=== PATIENT | female | born 1985 | race Caucasian/White ===

== ENCOUNTER → 2019-10-13 11:38 | Outpatient (CLI) | payer MEDICAID, SELFPAY | PROVIDERS: PCP Emergency Medicine; Visit Provider Nurse Practitioner Family | DX: R07.9 Chest pain, unspecified (principal); R06.00 Dyspnea, unspecified; R00.0 Tachycardia, unspecified; R94.31 Abnormal electrocardiogram [ECG] [EKG] | CPT/HCPCS: 93270 ==

== ENCOUNTER 2019-10-19 22:03 | Emergency (ER) | payer MEDICAID, SELFPAY ==
[2019-10-19 22:04] VITALS: BP 173/110; PULSE 136; RESP 28; TEMP 37.2; O2SAT 97; BMI 31.8
--- NOTE | 2019-10-19 22:13 | ECG_ITS ---
APPROVED REPORT Exam: Resting ECG HR:131 bpm ECG Measurements Heart Rate 131 AXES MS 128 P 53 QRSd 62 QRS 78 QT 288 T -10 QTc 425 <Conclusion> Sinus tachycardia T wave abnormality, consider anterior ischemia Abnormal ECG Electronically signed by : Jesus Moss, 10/20/2019 06:13:15
--- NOTE | 2019-10-19 22:13 | XR_ITS ---
PROCEDURE: XR CHEST 2V CLINICAL HISTORY: Chest Pain w/ SOA Centralized chest pain with shortness of breath COMPARISON: CR CXR CHEST(2 VIEWS-NOT PORTABLE) from 05/08/2015 CR CXR CHEST(2 VIEWS-NOT PORTABLE) from 05/10/2015 CR CXR CHEST(2 VIEWS-NOT PORTABLE) from 10/01/2015 FINDINGS: Heart size normal. There is diffuse bilateral alveolar disease No obvious effusions. There is suggestion of vague bilateral nodular opacities superimposed upon the diffuse alveolar disease. Consider CT evaluation. No acute bony abnormalities. IMPRESSION: Diffuse bilateral airspace disease which could be related to diffuse pneumonia or noncardiogenic pulmonary edema. There is also suggestion of multiple nodular opacities measuring up to 16 mm possibly due to denser consolidation versus pulmonary nodules. Consider chest CT further evaluation. Dictated by: Srinivasan Montalvo MD 10/20/2019 05:26 Srinivasan Montalvo MD in [place] 10/20/2019 05:26
[2019-10-19 22:24] LABS: Basophils # 0.1 K/mm3 (0-0.2); Basophils % 0.3 % (0.1-2.0); Eosinophils # 0.2 K/mm3 (0.0-0.4); Eosinophils % 1.4 % (0.1-12.0); Hematocrit 39.4 % (37.0-47.0); Hemoglobin 12.9 g/dL (12.2-16.2); Lymphocytes # 3.7 K/mm3 (0.7-4.5); Lymphocytes % 20.8 % (10-50); Mean Corpuscular HGB Conc 32.8 g/dL (31.8-35.4); Mean Corpuscular Hemoglobin 26.4 pg (27.0-31.2); Mean Corpuscular Volume 80.5 fl (81-99); Monocytes # 0.7 K/mm3 (0.1-1.0); Monocytes % 3.8 % (1.7-9.3); Neutrophils % 73.7 % (37.0-80.0); Platelet Count 239 K/mm3 (142-424); Red Blood Count 4.89 M/mm3 (4.20-5.40); Red Cell Distribution Width 15.8 % (11.5-17.5); White Blood Count 17.6 K/mm3 (4.8-10.8)
[2019-10-19 22:32] LABS: MANUAL DIFFERENTIAL MANUAL DIFFERENTIAL (MANUAL DIFF)
[2019-10-19 22:33] LABS: Blood Urea Nitrogen 11 mg/dl (7-17); Calcium 9.2 mg/dl (8.4-10.2); Carbon Dioxide 25 mmol/L (22.0-30.0); Chloride 106 mmol/L (98-107); Creatinine Clearance Estimated 127 mL/min (50-200); Estimated Glomerular Filt Rate 82 ml/min (>60); GFR (African American) 99 ML/MIN (>60); Glucose 129 mg/dl (74-100); Sodium 141 mmol/L (136-145)
[2019-10-19 22:45] VITALS: BP 140/88; PULSE 121; RESP 16; O2SAT 98
--- NOTE | 2019-10-19 22:48 | PC.NURSE ---
Pt had moderate relief from S.L. Nitro, 1 inch Nitro paste placed on pt's ACW
[2019-10-19 22:51] LABS: Troponin I < 0.01 ng/ml (0.00-0.034)
[2019-10-19 23:07] LABS: Eosinophils % 2 % (0-3); Lymphocytes % 21 % (10-50); Monocytes % 6 % (2-9); Neutrophils % 71 % (42-76); Total Cells Counted 100
[2019-10-19 23:08] LABS: Hypochromasia 1+; Platelet Estimate Normal
[2019-10-19 23:12] LABS: Coronavirus 19 IgG Antibody Negative (Negative); Coronavirus 19 IgM Antibody Negative (Negative)
[2019-10-19 23:38] VITALS: BP 127/79; PULSE 120; RESP 18; TEMP 37.2; O2SAT 97
== END 2019-10-19 23:40 | disposition left against medical advice (07) ==
PROVIDERS: Emergency Provider Emergency Medicine; PCP Emergency Medicine
DX: R07.9 Chest pain, unspecified (principal); R06.02 Shortness of breath
CPT/HCPCS: 71046; 80048; 84484; 85007; 85025; 86328; 93005; 96365; 99283

== ENCOUNTER → 2019-10-20 12:48 | Outpatient (CLI) | payer MEDICAID, SELFPAY ==
--- NOTE | 2019-10-20 12:48 | CA_ITS ---
APPROVED REPORT EXAM: Comprehensive 2D, Doppler, and color-flow Echocardiogram Taper/Finisher: Lore Higginbotham CRT Ht: 5 ft 3 in Wt: 193lbs BSA: 1.90 BP: 129/90 mmHg Indications: Abnormal ECG, Chest Pressure, Shortness of Breath, Palpitations, Hypertension/HDD, smoker, tachycardia 2D Dimensions LVOT 1.67 cm (M/F) 1.5-2.5 M-Mode Dimensions RVDd 2.07 cm (0.9-2.6) LVDd 4.11 cm (3.5-5.7) LVDs 2.39 cm (3.5-5.7) IVSd 1.61 cm (0.6-1.1) PWd 0.61 cm (0.6-1.1) EF (Teich) 73.20% FS 41.80% EDV (Teich) 74.70 mL ESV (Teich) 20.00 mL LV Diastology E/A Ratio 0.86 Mitral Valve MV A Velocity 85.00 (40-130 cm/s) Left Ventricle Left atrium is normal size, left ventricle is normal size, there is no concentric left ventricular hypertrophy, visually estimated ejection fraction 55% with no regional wall motion abnormality, diastolic parameters are within normal range. Right Ventricle Right atrium and right ventricular normal size and contractility. Aortic Valve Aortic valve is grossly normal, there is no aortic stenosis or aortic insufficiency. Mitral Valve Mitral valve is grossly normal, there is trace mitral regurgitation. Tricuspid Valve Tricuspid valve grossly normal, there is trace tricuspid regurgitation. Tricuspid regurgitation jet velocity is inadequate for calculation of the right ventricular systolic pressure. Pulmonic Valve Pulmonic valve is poorly visualized. Great Vessels Aortic root is normal size. Pericardium No significant pericardial effusion noted. Conclusion 1. Normal left ventricular size, preserved left ventricular systolic function, visually estimated ejection fraction 55% with no regional wall motion abnormality, diastolic parameters are within normal range. 2. Trace mitral and tricuspid regurgitation. 3. No significant pericardial effusion noted. Electronically signed by : Sujit Topete, 10/20/2019 18:21:58
== END ==
PROVIDERS: PCP Emergency Medicine; Visit Provider Nurse Practitioner Family
DX: R07.9 Chest pain, unspecified (principal); R06.00 Dyspnea, unspecified; R94.31 Abnormal electrocardiogram [ECG] [EKG]; R00.0 Tachycardia, unspecified
CPT/HCPCS: 93306

== ENCOUNTER 2019-10-20 23:02 | Observation (INO) | payer MEDICAID, SELFPAY ==
--- NOTE | 2019-10-20 22:57 | ECG_ITS ---
APPROVED REPORT Exam: Resting ECG HR:118 bpm ECG Measurements Heart Rate 118 AXES LA P 53 QRSd 64 QRS 41 QT 302 T -20 QTc 423 <Conclusion> Sinus tachycardia T wave abnormality, consider inferior/lateral ischemia Abnormal ECG Electronically signed by : Bubba Barboza, 10/21/2019 08:57:38
[2019-10-20 23:03] VITALS: BP 141/87; PULSE 124; RESP 16; TEMP 36.6; O2SAT 98; BMI 30.7
[2019-10-20 23:32] VITALS: BP 132/95; PULSE 121; RESP 17; TEMP 36.7; O2SAT 93
--- NOTE | 2019-10-20 23:32 | PC.NURSE ---
on phone with dr alas
[2019-10-20 23:41] LABS: Chloride 108 mmol/L (98-107)
[2019-10-20 23:42] LABS: Potassium 3.8 mmoL/L (3.5-5.1); Sodium 141 mmol/L (136-145)
[2019-10-20 23:43] LABS: Basophils # 0.1 K/mm3 (0-0.2); Basophils % 0.4 % (0.1-2.0); Eosinophils # 0.2 K/mm3 (0.0-0.4); Eosinophils % 1.2 % (0.1-12.0); Hematocrit 38.1 % (37.0-47.0); Hemoglobin 12.6 g/dL (12.2-16.2); Lymphocytes # 4.2 K/mm3 (0.7-4.5); Lymphocytes % 27.1 % (10-50); Mean Corpuscular Hemoglobin 26.8 pg (27.0-31.2); Mean Corpuscular Volume 81.2 fl (81-99); Mean Platelet Volume 9.8 fl (7.4-10.4); Monocytes # 0.5 K/mm3 (0.1-1.0); Monocytes % 3.4 % (1.7-9.3); Neutrophils # 10.5 K/mm3 (1.8-7.8); Platelet Count 227 K/mm3 (142-424); Red Blood Count 4.69 M/mm3 (4.20-5.40); Red Cell Distribution Width 16.1 % (11.5-17.5); White Blood Count 15.5 K/mm3 (4.8-10.8)
[2019-10-20 23:44] LABS: Blood Urea Nitrogen 7 mg/dl (7-17); Creatinine Clearance Estimated 149 mL/min (50-200); Estimated Glomerular Filt Rate 95 ml/min (>60); GFR (African American) 115 ML/MIN (>60)
[2019-10-20 23:45] LABS: Anion Gap 12.8 mEq/L (5-15); Carbon Dioxide 24 mmol/L (22.0-30.0); Glucose 117 mg/dl (74-100)
[2019-10-20 23:50] LABS: C-Reactive Protein 131.7 mg/L (0-4)
[2019-10-20 23:55] LABS: MANUAL DIFFERENTIAL MANUAL DIFFERENTIAL (MANUAL DIFF)
[2019-10-21] VITALS (31 sets, daily range): BP systolic 101–125; BP diastolic 59–85; PULSE 70–123; RESP 15–26; TEMP 36.4–36.8; O2SAT 90–100; BMI 30.8; BMI 33.1
[2019-10-21 00:01] LABS: Troponin I < 0.01 ng/ml (0.00-0.034)
--- NOTE | 2019-10-21 00:05 | CT_ITS ---
PROCEDURE: CT ANGIO CHEST CLINCIAL INDICATION: chest pain Chest pain, smoker COMPARISON: CR XR CHEST 2V from 10/19/2019 TECHNIQUE: IV Contrast: 70ML OPTIRAY 350 Axial images obtained with sagittal and coronal reformats. All CT scans at the facility use one or more dose reduction, viz: automated exposure control, ma/kV adjustment per patient size (including targeted exams where dose is matched to indication, i.e. head), or iterative reconstruction technique. FINDINGS: HEART AND MEDIASTINAL STRUCTURES: No evidence of aortic aneurysm, dissection, or pulmonary embolus. There is mediastinal adenopathy enlarged precarinal AP window and subcarinal nodes measuring up to 15 mm in short axis in the pretracheal region, 12 mm in the subcarinal region, and 12 mm in the AP window. There are some mildly prominent right hilar nodes measuring up 12 mm. LUNGS AND PLEURAL SPACES: There is diffuse bilateral alveolar opacities with a largely ground-glass component. No evidence of cavitation or abscess. No discrete pulmonary nodule apparent. Small nodules may be obscured by the alveolar disease. The radiographic abnormality previously described on the chest x-ray is likely related to the multifocal pneumonia. No effusions. BONY STRUCTURES: There are old fractures of the right 9th and 10th ribs. UPPER ABDOMEN: Unremarkable. ADDITIONAL FINDINGS: No other significant abnormalities. IMPRESSION: 1. No evidence of pulmonary embolus, aortic aneurysm, or aortic dissection. 2. Extensive bilateral alveolar opacities consistent with multifocal pneumonia or possibly an atypical edema pattern 3. Mild mediastinal adenopathy Dictated by: Srinivasan Montalvo MD 10/21/2019 05:21 Srinivasan Montalvo MD in [place] 10/21/2019 05:21
[2019-10-21 00:08] LABS: T4 (Thyroxine) 6.2 ug/dl (5.53-11.0)
[2019-10-21 00:15] LABS: Eosinophils % 2 % (0-3); Lymphocytes % 31 % (10-50); Neutrophils % 66 % (42-76); Total Cells Counted 100
[2019-10-21 00:16] LABS: Platelet Estimate Normal; RBC Morphology Normal
--- NOTE | 2019-10-21 00:20 | HMH.EDCP ---
ED Disposition Clinical Impression: Tobacco use, Obesity (BMI 30.0-34.9), SIRS (systemic inflammatory response syndrome) Chest pain Qualifiers: Chest pain type: precordial pain Qualified Code(s): R07.2 - Precordial pain CAP (community acquired pneumonia) Qualifiers: Laterality: unspecified laterality Qualified Code(s): J18.9 - Pneumonia, unspecified organism Disposition: Admitted as Observation Condition on Discharge: Good Referrals: Provider,Referral, [Referring] - - Critical Care Critical Care Time: No Attestation: On 10/20/19, the high probability of a clinically significant, sudden or life threatening deterioration of the following system(s) required my full and direct attention, intervention and personal management. The time I documented below is in addition to time spent performing reported procedures but includes the following listed in this critical care notation. Medical Decision Making - Medical Records Medical records reviewed: Yes: I reviewed the patient's medical records. - [place] Inquiry Pt receiving controlled substance: No Vital Signs: 10/20/19 23:03 10/20/19 23:32 10/21/19 00:04 Temperature 97.9 F 98.0 F 98.2 F Temperature Source Oral Oral Oral Pulse Rate [Right Brachial] 124 H 121 H 123 H Respiratory Rate 16 17 26 H Blood Pressure [Right Arm] 141/87 H 132/95 H 120/81 Blood Pressure Mean [Right Arm] 105 107 94 Blood Pressure Source [Right Arm] Automatic Cuff Automatic Cuff Blood Pressure Position [Right Arm] Sitting Supine 02 Sat by Pulse Oximetry 98 93 L 95 Oxygen Delivery Method Room Air Room Air Room Air 10/21/19 03:15 Temperature Temperature Source Pulse Rate [Right Brachial] 93 H Respiratory Rate 18 Blood Pressure [Right Arm] 119/59 L Blood Pressure Mean [Right Arm] 79 Blood Pressure Source [Right Arm] Automatic Cuff Blood Pressure Position [Right Arm] Sitting 02 Sat by Pulse Oximetry 92 L Oxygen Delivery Method Room Air - Lab Data Lab results reviewed: Yes: I reviewed the patient's lab results. Lab Results 10/20/19 23:07: WBC 15.5 H, RBC 4.69, Hgb 12.6, Hct 38.1, MCV 81.2, MCH 26.8 L, MCHC 33.0, RDW 16.1, Plt Count 227, MPV 9.8, Neut % (Auto) 68.0, Lymph % (Auto) 27.1, Long % (Auto) 3.4, Eos % (Auto) 1.2, Baso % (Auto) 0.4, Neut # (Auto) 10.5 H, Lymph # (Auto) 4.2, Long # (Auto) 0.5, Eos # (Auto) 0.2, Baso # (Auto) 0.1, Total Counted 100, Neutrophils % (Manual) 66, Lymphocytes % (Manual) 31, Eosinophils % (Manual) 2, Basophils % (Manual) 1.0, Platelet Estimate Normal, RBC Morphology Normal 10/20/19 23:07: Sodium 141, Potassium 3.8, Chloride 108 H, Carbon Dioxide 24, Anion Gap 12.8, BUN 7 D, Creatinine 0.70, Estimated Creat Clear 149, Estimated GFR 95, Est GFR ( Amer) 115, Glucose 117 H, Calcium 9.0, Troponin I < 0.01, C-Reactive Protein 131.7 H, TSH 1.40, Thyroxine (T4) 6.2 10/20/19 23:07: ESR 73 H 10/21/19 00:00: SARS-CoV-2 IgG Ab (Rapid) Negative, SARS-CoV-2 IgM Ab (Rapid) Negative 10/21/19 01:22: Lactate 1.0 10/21/19 01:22: NT-Pro-B Natriuret Pep 62.2 Result diagrams: 10/20/19 23:07 10/20/19 23:07 Orders (Tests/Meds): ED MEDICATIONS Generic Name Dose Route Start Last Admin Trade Name Freq PRN Reason Stop Dose Admin Sodium Chloride 1,000 mls @ 999 mls/hr 10/20/19 23:30 10/20/19 23:21 Sod Chlor 0.9% 1000ml Bag IV 10/21/19 00:30 999 mls/hr .Q1H1M THI Administration Ceftriaxone Sodium 1 gm/ 50 mls @ 100 mls/hr 10/21/19 01:30 10/21/19 01:31 Sodium Chloride IV 11/04/19 01:29 100 mls/hr Q24H THI Administration Protocol Sodium Chloride 8 ml 10/20/19 23:17 Sodium Chloride 0.9% 10ml Vial IV 11/19/19 23:16 NEEDED PRN dilute pepcid Discontinued Medications Generic Name Dose Route Start Last Admin Trade Name Freq PRN Reason Stop Dose Admin Aspirin 162 mg 10/20/19 23:17 10/20/19 23:21 Aspirin 81mg Chewable Tablet PO 10/20/19 23:18 162 mg ONCE ONE Administration Famotidine 20 mg 10/20/19
[2019-10-21 00:40] LABS: Erythrocyte Sedimentation Rate 73 mm/hr (0-20)
--- NOTE | 2019-10-21 01:14 | PC.NURSE ---
received ct report
[2019-10-21 01:52] LABS: NT Pro Brain Natriuretic Pep. 62.2 pg/mL (0-125)
--- NOTE | 2019-10-21 01:57 | PC.NURSE ---
pt up to bathroom at this time.
[2019-10-21 02:36] LABS: Coronavirus 19 IgG Antibody Negative (Negative); Coronavirus 19 IgM Antibody Negative (Negative)
--- NOTE | 2019-10-21 03:27 | PC.NURSE ---
called warehouse worker for hospital bed due to admit and bed holding
--- NOTE | 2019-10-21 03:45 | PC.NURSE ---
pt placed in encarnacion bed/ bed hold. info given : cecilia, atypical pneumonia and observation
--- NOTE | 2019-10-21 05:25 | PC.NURSE ---
admission information complete on worklist with assist of john perez and severinorn
[2019-10-21 05:32] LABS: Basophils # 0.1 K/mm3 (0-0.2); Basophils % 0.4 % (0.1-2.0); Eosinophils # 0.3 K/mm3 (0.0-0.4); Hematocrit 34.6 % (37.0-47.0); Hemoglobin 11.5 g/dL (12.2-16.2); Lymphocytes # 3.4 K/mm3 (0.7-4.5); Lymphocytes % 24.9 % (10-50); Mean Corpuscular HGB Conc 33.2 g/dL (31.8-35.4); Mean Corpuscular Hemoglobin 27.3 pg (27.0-31.2); Mean Corpuscular Volume 82.3 fl (81-99); Mean Platelet Volume 9.8 fl (7.4-10.4); Monocytes # 0.6 K/mm3 (0.1-1.0); Monocytes % 4.5 % (1.7-9.3); Neutrophils # 9.2 K/mm3 (1.8-7.8); Neutrophils % 68.3 % (37.0-80.0); Platelet Count 202 K/mm3 (142-424); Red Blood Count 4.21 M/mm3 (4.20-5.40); Red Cell Distribution Width 16.2 % (11.5-17.5); White Blood Count 13.5 K/mm3 (4.8-10.8)
[2019-10-21 05:37] LABS: Chloride 109 mmol/L (98-107); Potassium 3.6 mmoL/L (3.5-5.1); Sodium 140 mmol/L (136-145)
[2019-10-21 05:39] LABS: Blood Urea Nitrogen 5 mg/dl (7-17); Creatinine Clearance Estimated 173 mL/min (50-200); Estimated Glomerular Filt Rate 114 ml/min (>60); GFR (African American) 138 ML/MIN (>60)
[2019-10-21 05:40] LABS: Anion Gap 9.6 mEq/L (5-15); Carbon Dioxide 25 mmol/L (22.0-30.0); Cholesterol 152 mg/dl (140-200); Glucose 119 mg/dl (74-100); Triglycerides 52 mg/dl (30-150); VLDL Cholesterol 10 mg/dL (0-40)
[2019-10-21 05:41] LABS: Chol/HDL Ratio 3.1 (1-3.5); HDL Cholesterol 49 mg/dl (40-60)
[2019-10-21 05:51] LABS: Direct LDL Cholesterol 78.86 mg/dL (100-129)
[2019-10-21 06:36] LABS: Albumin Level 3.5 g/dl (3.5-5.0); Alkaline Phosphatase 74 U/L (38-126); Aspartate Amino Transferase 37 U/L (14-36); Bilirubin,Indirect 0.3 mg/dL (0.0-0.9); Bilirubin,Total 0.3 mg/dl (0.2-1.3); Bilirubin,Unconjugated 0.3 mg/dL (0.0-1.1); Total Protein,Serum 6.7 g/dl (6.3-8.2)
[2019-10-21 06:51] LABS: Alanine Aminotransferase 22 U/L (12-78)
--- NOTE | 2019-10-21 09:47 | HMH.PHAINT ---
MEDICATION RECONCILIATION COMPLETED ON PATIENT USING EXTERNAL FILL HISTORY FROM PHARMACY. -ABDULLAHI CRANDALL, DEBRAD
--- NOTE | 2019-10-21 09:52 | HMH.PHAVTE ---
[facility] Pharmacy VTE Monitoring - Patient Demographics Admission date: 10/20/19 Report Date: 10/21/19 Time: 09:52 Allergies/Adverse Reactions: Patient Allergies No Known Allergies Allergy (Verified 10/13/19 10:37) Height: 1.65 m Weight: 83.915 kg Patient Problems: Current Active Problems CAP (community acquired pneumonia) (Acute) Tobacco use (Acute) Obesity (BMI 30.0-34.9) (Acute) SIRS (systemic inflammatory response syndrome) (Acute) Chest pain (Acute) - VTE Risk Labs: VTE Related Lab Results Hgb 11.5 g/dL (12.2-16.2) L 10/21/19 05:19 Hct 34.6 % (37.0-47.0) L 10/21/19 05:19 Plt Count 202 K/mm3 (142-424) 10/21/19 05:19 BUN 5 mg/dl (7-17) L D 10/21/19 05:19 Creatinine 0.60 mg/dl (0.52-1.04) 10/21/19 05:19 Estimated Creat Clear 173 mL/min (50-200) 10/21/19 05:19 - Prophylaxis VTE Prophylaxis Ordered?: Yes Types of VTE Prophylaxis: TEDS Knee High Location of Applied Device: Bilateral Lower Extremeties
--- NOTE | 2019-10-21 10:26 | PC.NURSE ---
pt arrived to the floor at this ttime.
--- NOTE | 2019-10-21 10:29 | HMH.CNCARD ---
History of Present Illness Consult date: 10/21/19 Requesting physician: Kunal Peterson Consult reason: chest pain Chief complaint: chest pain Additional Medical History:: 1. HTN 2. Palpitations Echo 10/20/2019 shows: 1. Normal left ventricular size, preserved left ventricular systolic function, visually estimated ejection fraction 55% with no regional wall motion abnormality, diastolic parameters are within normal range. 2. Trace mitral and tricuspid regurgitation. 3. No significant pericardial effusion noted. History of present illness: This is a 34-year-old female who presented to the emergency department with complaints of chest pain, shortness of breath and tachycardia. The patient states that last night she started to have sudden onset of chest pain that she describes as a squeezing sensation. This is in the center of her chest. It does not radiate. It is associated with profound shortness of breath and nausea. This is a severe pain. She states that she did take aspirin prior to her arrival to the emergency department without much improvement in her pain. She states that the symptoms have been ongoing. She states that when her chest pressure and shortness of breath started last night she also became tachycardic again. She states that her rate had been under much better control until last night. She states that she still has some chest pressure this morning but it is somewhat better as well as her shortness of breath. She is a current smoker. She does have a nicotine patch in place. She does have a very strong history of coronary artery disease. 1 of her aunts had an NH before the age of 40. She has 2 other aunts with heart disease and her paternal grandmother had a history of coronary disease as well. She states that her father probably has heart disease but he has not been to the doctor since 2003. She denies any fever, chills, vomiting, diarrhea, PND or orthopnea. Of note, the patient is being worked up for adrenal disease by her primary care provider. [facility] History I have reviewed the patient's past medical history: Yes Medical History: Reports:: Hypertension, Palpitations Denies:: Diabetes Mellitus Type 1, Diabetes Mellitus Type 2, Internal Pacemaker *Have you ever received a pneumonia vaccine?: No *Have you received a flu vaccine this season?: No Other Surgeries: Yes: No Previous Surgery. No: Pacemaker - *Social History Last grade of school completed: High school graduate Smoking Status: Current every day smoker Tobacco Type: cigarettes # Packs/Day (cigarettes): 1 Alcohol Intake: current Alcohol Intake Frequency:: holidays/special occasions only Substance Use Type: denies use *Occupational Status:: employed Housing: house *Travel in the last 8 weeks: None Family Hx:: Unable to obtain Meds Home Medications Medication Instructions Recorded Confirmed Type Propranolol HCl [Propranolol HCl 60 mg PO DAILY 10/19/19 10/21/19 History ER] Albuterol Sulfate [Proventil-HFA 1 - 2 puffs IH Q4HP PRN 10/21/19 10/21/19 History 90mcg/puff Inh] Allergies Allergy/AdvReac Type Severity Reaction Status Date / Time No Known Allergies Allergy Verified 10/13/19 10:37 Exam Vital signs and Labs for Last 24 Hours: Temp Pulse Resp BP Pulse Ox 98 F 94 H 17 117/75 90 L 10/21/19 09:54 10/21/19 09:54 10/21/19 09:54 10/21/19 09:54 10/21/19 07:17 Laboratory Results - last 24 hr 10/20/19 23:07: WBC 15.5 H, RBC 4.69, Hgb 12.6, Hct 38.1, MCV 81.2, MCH 26.8 L, MCHC 33.0, RDW 16.1, Plt Count 227, MPV 9.8, Neut % (Auto) 68.0, Lymph % (Auto) 27.1, [place] % (Auto) 3.4, Eos % (Auto) 1.2, Baso % (Auto) 0.4, Neut # (Auto) 10.5 H, Lymph # (Auto) 4.2, [place] # (Auto) 0.5, Eos # (Auto) 0.2, Baso # (Auto) 0.1, Total Counted 100, Neutrophils % (Manual) 66, Lymphocytes % (Manual) 31, Eosinophils % (Manual) 2, Basophils % (Manual) 1.0, Platelet Estimate Normal, RBC Morphology Normal 10/20/19 23:07: Sodium 141, Potassium
--- NOTE | 2019-10-21 11:45 | PC.NURSE ---
WHILE ASLEEP PATIENT SATS 86%. APPLIED 2L WHILE ASLEEP
--- NOTE | 2019-10-21 13:32 | PC.NURSE ---
Dr Gaviria at bedside to perform bedside bronchoscopy. at bedside are Gale Crews RT, Dejuan Dennis RT, Arian Castillo RN, Kimmie Mays RN, Brenda Reynolds RT and Arabella Ham RN sedating pt. pt tolerated procedure well, was alert enough and able to follow commands, NAD noted.
--- NOTE | 2019-10-21 14:45 | HMH.PULMCON ---
*Admission Date: 10/20/19 *Reason for consult:: Acute hypoxic respiratory failure *History of present illness: Ms. 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 Patient stated for the last 2 days her breathing has been getting worse, along with cough and productive phlegm which is amelia brownish in color. Patient denies any fevers any chills any night sweats, any muscle aches. she also denies any sick contacts. Denies any history of vaping. Is currently not working, stays at home. Patient denies any previous respiratory complaints except around in 2016 she was admitted to [facility] for mycoplasma pneumonia followed by organizing pneumonia at that time during which she had a bronchoscopy with transbronchial biopsies performed. However she recovered from that episode in 2 3 months and never had any respiratory symptoms until this admission. Denies any history of allergies or any chills history of asthma, denies any family history of asthma. Denies any dysphagia, odynophagia, dry eyes, dry mouth skin rash, small joint pains. Denies any spinal history of autoimmune disorders. And also admits of having frequent anxiety/panic attacks. [facility] History Medical History: Reports:: Hypertension, Palpitations Denies:: Diabetes Mellitus Type 1, Diabetes Mellitus Type 2, Internal Pacemaker *Have you ever received a pneumonia vaccine?: No *Have you received a flu vaccine this season?: No Other Surgeries: Yes: No Previous Surgery. No: Pacemaker - *Social History Last grade of school completed: High school graduate Smoking Status: Current every day smoker Tobacco Type: cigarettes # Packs/Day (cigarettes): 1 Alcohol Intake: current Alcohol Intake Frequency:: holidays/special occasions only Substance Use Type: denies use *Occupational Status:: employed Housing: house *Travel in the last 8 weeks: None Family Hx:: Unable to obtain [facility] Pulmonology ROS - Review of Systems Review of systems:: pertinent systems reviewed and negative unless documented below - Constitutional Denies anorexia, Denies body ache(s), Denies chills, Denies daytime sleepiness, Denies excessive sweating, Denies fatigue, Denies fever(s) - Eyes Denies dry eyes - *Cardiovascular Reports chest pain - *Respiratory Respiratory: Yes dyspnea, Yes dyspnea on exertion, Yes pain with cough, Yes cough with sputum production - *Gastrointestinal Gastrointestingal: Denies: coffee ground emesis, dyspepsia, dysphagia - *Musculoskeletal Musculoskeletal: Denies joint pain, Reports back pain, Denies joint stiffness, Denies joint swelling - *Neurologic Denies abnormal walking, Denies abnormal hearing, Denies localized weakness - Psychiatric Reports anxiety Meds Home Medications Medication Instructions Recorded Confirmed Type Propranolol HCl [Propranolol HCl 60 mg PO DAILY 10/19/19 10/21/19 History ER] Albuterol Sulfate [Proventil-HFA 1 - 2 puffs IH Q4HP PRN 10/21/19 10/21/19 History 90mcg/puff Inh] Allergies Allergy/AdvReac Type Severity Reaction Status Date / Time No Known Allergies Allergy Verified 10/13/19 10:37 Exam Vital signs and Labs for Last 24 Hours: Temp Pulse Resp BP Pulse Ox 97.8 F 82 20 113/72 95 10/21/19 10:39 10/21/19 10:39 10/21/19 10:39 10/21/19 10:39 10/21/19 10:39 Laboratory Results - last 24 hr 10/20/19 23:07: WBC 15.5 H, RBC 4.69, Hgb 12.6, Hct 38.1, MCV 81.2, MCH 26.8 L, MCHC 33.0, RDW 16.1, Plt Count 227, MPV 9.8, Neut % (Auto) 68.0, Lymph % (Auto) 27.1, [place] % (Auto) 3.4, Eos % (Auto) 1.2, Baso % (Auto) 0.4, Neut # (Auto) 10.5 H, Lymph # (Auto) 4.2, [place] # (Auto) 0.5, Eos # (Auto) 0.2, Baso # (Auto) 0.1, To
--- NOTE | 2019-10-21 15:24 | P.PCN_ITS ---
[facility] Procedure Note Procedure Note:: Bronchoscopy with bronchoalveolar lavage: Bedside bronchoscopy with bronchoalveolar lavage performed today. A clean bronchoscope was introduced to the left naris , advanced to the trachea, right and left mainstem bronchus. Airways were examined up to the subsegmental bronchi, appeared normal with no evidence of trauma or no evidence of mucous plugging. Bronchoalveolar lavage was performed in the right middle lobe medial segment, 4 successive aliquots of 20 cc normal saline was instilled and suctioned back. No evidence of hemorrhage noted. Total return was 55 cc. Lavage was sent for BAL cell count differential, bacterial stain and culture, fungal stain and culture and cytopathology. Specimens taken to the lab in person and discussed with the lab personnel to make sure the orders were placed correctly. Conscious sedative medications were administered by Ms. Ursula Lucio. Total medications given during the procedure include 75 mcg of fentanyl, 2 mg of Versed, 10 cc of 1% lidocaine and lidocaine jelly. Patient tolerated the procedure well without any complications. Follow-up with the results.
--- NOTE | 2019-10-21 15:59 | SUR.OPER ---
procedure performed at bedside room 216
--- NOTE | 2019-10-21 16:14 | PC.NURSE ---
pt received 2 of 5ml of versed and 1.75ml of 2ml of fentanyl. Physical waste was verified with win hyman RN following procedure. spoke with Beatriz Choi in pharmacy at [id number] to notify of waste.
--- NOTE | 2019-10-21 18:14 | PC.NURSE ---
PT TOLERATING 2L NC WELL. PT DID COMPLAIN OF LUNG PAIN, MEDICATED WITH TYLENOL, EFFECTIVENESS NOTED, EXPIRATORY RHONCHI NOTED IN BILATERAL UPPER LOBES, NO C/O SOA, HOWEVER WHEN PT SLEEPS O2 SATS DROP INTO MID 80'S ON RA. PT HAS NOT C/O N/V/D. PT VOIDS PER BATHROOM INDEPENDENTLY. UP TOLERATED, VSS T/O SHIFT.
--- NOTE | 2019-10-21 22:39 | PC.NURSE ---
surgical consent signed and witnessed, placed on chart.
[2019-10-22] VITALS (18 sets, daily range): BP systolic 95–155; BP diastolic 61–106; PULSE 80–104; RESP 16–20; TEMP 36.3–36.8; O2SAT 92–97; BMI 33.2
--- NOTE | 2019-10-22 | IR_ITS ---
APPROVED REPORT Patient Location: Inpatient PROCEDURES Selective coronary angiogram Bilateral selective renal angiography INDICATION Acute coronary syndrome, Risk factors for coronary artery disease, Malignant hypertension, Suspect renovascular hypertension with fibromuscular dysplasia Informed consent was obtained prior to the procedure. COMPLICATIONS NONE Estimated Blood Loss: LESS THAN 10 ML TECHNIQUE One percent lidocaine used to anesthetize the right anterior aspect of the wrist. The right radial artery was accessed via the Seldinger technique. A 6 [place] sheath was placed in the right radial artery. 2.5 mg of verapamil, 800 mcg of nitroglycerin, 1mg Lidocaine and 5000 U Heparin were given through the arterial sheath. The trap catheter was also used to perform selective coronary angiography as well as bilateral selective renal angiography. At the end of the procedure the sheath was removed good hemostasis was achieved using TR banding patient was transferred to the postop holding in stable condition ANGIOGRAPHIC RESULTS The left main artery Normal The left anterior descending artery Normal The circumflex artery Normal The right coronary artery Large dominant with mid vessel 40 to 50% stenosis The MILLER ventriculogram reveals Not performed The left ventricular end-diastolic pressure Not measured The right renal artery singular normal Left renal artery singular normal IMPRESSION Moderate single-vessel coronary artery disease as described above Normal renal arteries PLAN 1. Medical management. Patient needs much higher dose of beta-blockers in order to slow down heart rate 2. Maximize antianginal medications 3. LDL less than 55 4. Very reluctant to even perform FFR on this vessel given patient's persistent tachycardia and hypertension. I believe this smooth 40 to 50% stenosis can be managed medically. 5. Avoidance of tobacco products Electronically signed by : Hector Meeks, 10/22/2019 14:31:05
--- NOTE | 2019-10-22 05:21 | PC.NURSE ---
patient has rested on and off throughout shift. no c/o chest pain, nausea, vomiting or soa. patient has been npo since midnight.
--- NOTE | 2019-10-22 08:14 | HMH.HP ---
*Admission Date: 10/20/19 *Chief complaint: Chest Pain *History of present illness: This is a 34-year-old female who presented to the emergency department with complaints of chest pain, shortness of breath and tachycardia. The patient states that last night she started to have sudden onset of chest pain that she describes as a squeezing sensation. This is in the center of her chest. It does not radiate. It is associated with profound shortness of breath and nausea. This is a severe pain. She states that she did take aspirin prior to her arrival to the emergency department without much improvement in her pain. She states that the symptoms have been ongoing. She states that when her chest pressure and shortness of breath started last night she also became tachycardic again. She states that her rate had been under much better control until last night. She states that she still has some chest pressure this morning but it is somewhat better as well as her shortness of breath. She is a current smoker. She does have a nicotine patch in place. She does have a very strong history of coronary artery disease. 1 of her aunts had an LA before the age of 40. She has 2 other aunts with heart disease and her paternal grandmother had a history of coronary disease as well. She states that her father probably has heart disease but he has not been to the doctor since 2003. She denies any fever, chills, vomiting, diarrhea, PND or orthopnea. Of note, the patient is being worked up for adrenal disease by her primary care (Per Jose Donohue APRN) Cardiology has seen and recommends: 1. Patient was admitted to the hospital with complaints of chest pain. She is having symptoms consistent with unstable angina. We will plan to proceed with left cardiac catheterization at this time to evaluate her coronary artery disease. The patient has a significant family history of premature coronary artery disease. 2. The patient has been educated on the risk and benefits of proceeding with left cardiac catheterization. The patient verbalized understanding and is agreeable in proceeding with the procedure. 3. The patient will be n.p.o. in preparation for left cardiac catheterization. 4. The patient will get premeds prior to her left cardiac catheterization. 5. The patient has had some malignant hypertension as well as concern for adrenal disease. Given her history of hypertension and the concern for adrenal disease we will plan to proceed with a renal angiogram at the same time as her left cardiac catheterization per Dr. Meeks. The patient has also been educated on the risks and benefits of proceeding with a renal angiogram. The patient verbalizes understanding and is agreeable in proceeding with the procedure. 6. The CT scan of her chest did show pneumonia versus atypical edema pattern. She has been consulted by pulmonology and the patient mentioned having a biopsy tomorrow. I see no notes from pulmonology at this point. 7. Her blood pressure is well controlled today. 8. Her LDL goal is less than 100. LDL is 78. 9. Further recommendations will be made pending the patient's response to treatment and the results of her left cardiac catheterization and renal angiogram later today. Pulmonary has seen and recommends: -Please obtain respiratory viral PCR, urine strep pneumonia and urine Legionella antigens -Continue ceftriaxone and azithromycin to cover community-acquired pneumonia -Bronchoscopy with bronchoalveolar lavage of right middle lobe performed today we will follow the results of BAL differential count, Gram stain and CARLO stain along with cytopathology. -Wean oxygen requirements as tolerated. Chest CTA 10/22/19: IMPRESSION: 1. No evidence of pulmonary embolus, aortic aneurysm, or aortic dissection. 2. Extensive bilateral alveolar opacities consistent with multifocal pneumonia or possibly an atypical edema pattern 3. Mild mediastinal adenopathy Dictated by: Selvin
[2019-10-22 10:28] LABS: HCG Qualitative, Serum Negative (Negative)
--- NOTE | 2019-10-22 10:36 | HMH.PNCARD ---
Subjective Date: 10/22/19 Time: 10:30 Principal diagnosis: Angina Interval history: 34-year-old female who presented to the emergency department complains of chest pain shortness of breath and tachycardia. She states that she was having sudden onset of squeezing in the center of her chest which did not radiate. It was associated with profound shortness of breath and nausea. The pain was severe. She did take aspirin without much improvement in her pain before coming to the emergency department. Her chest pain and shortness of breath was also associated with tachycardia. The patient was set up for left cardiac catheterization yesterday but this was put on hold as she underwent bronchoscopy yesterday with pulmonology. She is rescheduled to undergo left cardiac catheterization today to evaluate for coronary artery disease secondary to her unstable angina, tobacco use and her significant family history of OH/CAD before the age of 40. The patient states that she has continued to have chest pain intermittently while hospitalized. She states that it is not as severe as it was at home but it is still present. Patient is still with symptoms consistent with unstable angina. She denies any fever, chills, diarrhea, PND or orthopnea. She is also being worked up by her primary care provider for adrenal disease. Because of her adrenal issues and malignant hypertension at home we will also proceed with a renal angiogram at the time of her left cardiac catheterization. Exam Vital signs and Labs for Last 24 Hours: Temp Pulse Resp BP Pulse Ox 97.8 F 93 H 20 106/68 L 92 L 10/22/19 08:00 10/22/19 08:00 10/22/19 08:00 10/22/19 08:00 10/22/19 08:00 Laboratory Results - last 24 hr 10/21/19 05:19: Serum HCG, Qual Negative I & O for Last 24 hours: Intake & Output 10/19/19 10/20/19 10/21/19 10/22/19 23:59 23:59 23:59 23:59 Intake Total 1080 / 1080 860 / 860 Output Total 825 / 825 Balance 255 / 255 860 / 860 Weight 185 lb 187 lb 1 oz 187 lb 9 oz Microbiology Reports for the Last 24 Hours: Microbiology 10/21/19 12:30 Bronchial Washings Gram Stain - Final - Constitutional no acute distress, obese - *Routine HEENT Exam Head: Present: normocephalic, atraumatic Eye: Present: EOMI, PERRL ENT: Present: mucous membranes moist - *Routine Neck Exam Present: supple, full ROM, normal carotid upstroke. Absent: JVD, carotid bruit, lymphadenopathy - *Routine Respiratory Exam Present: CTA bilaterally - *Routine Cardiovascular Exam Present: RRR, Normal S1, Normal S2. Absent: murmur - *Routine Abdominal Exam Present: soft, normoactive bowel sounds. Absent: tenderness, distended - *Routine Extremities Exam Present: full ROM, pulses intact, normal capillary refill. Absent: cyanosis, clubbing, edema - *Routine Skin Exam Present: intact, warm. Absent: erythema, rash - *Routine Neurological Exam Present: alert, oriented X3, CN II-XII intact. Absent: sensory deficit, motor deficit - Routine Psychiatric Exam Present: normal affect, normal thought process Progress Note: A&P (1) Unstable angina Status: Acute Current Visit: Yes (2) SOB (shortness of breath) Status: Acute Current Visit: Yes (3) Sinus tachycardia Status: Acute Current Visit: Yes (4) Tobacco use Status: Acute Current Visit: Yes (5) Obesity (BMI 30.0-34.9) Status: Acute Current Visit: Yes Assessment and Plan for All Diagnoses:: Plan: 1. The patient was admitted to the hospital with chest pain, shortness of breath and tachycardia. She is having symptoms consistent with unstable angina. The patient is scheduled undergo left cardiac catheterization today secondary to her unstable angina, tobacco use and family history of premature coronary artery disease. 2. She will also undergo renal angiogram at the time of her left cardiac catheterization secondary to her malignant hypertension on an outpatient basis as well as
--- NOTE | 2019-10-22 14:06 | PC.NURSE ---
clarified with Dr Gaviria about orders suggested in his consultation note. orders are recommendation that he is leaving up to primary MD to order if they wish. Called Brenda Martinez at 1400 to ask about orders. awaiting call back.
[2019-10-22 14:23] LABS: Covid-19 Nasal PCR Sendout Lex Not Detected
--- NOTE | 2019-10-22 15:04 | PC.NURSE ---
ok to enter recommended orders from jose brand.
[2019-10-22 15:45] LABS: Adenovirus,PCR Not Detected (NotDetected); Bordetella Pertussis Not Detected (NotDetected); Chlamydophila Pneumoniae, PCR Not Detected (NotDetected); Coronavirus 229E Not Detected (NotDetected); Coronavirus NL63 Not Detected (NotDetected); Coronavirus OC43 Not Detected (NotDetected); Coronovirus HKU1,PCR Not Detected (NotDetected); Human Metapneumovirus Not Detected (NotDetected); Influenza A, PCR Not Detected (NotDetected); Influenza AH1, 2009 Not Detected (NotDetected); Influenza AH1, PCR Not Detected (NotDetected); Influenza AH3,PCR Not Detected (NotDetected); Influenza B, PCR Not Detected (NotDetected); Mycoplasma Pneumoniae, PCR Not Detected (NotDetected); Parainfluenza 1, PCR Not Detected (NotDetected); Parainfluenza 2, PCR Not Detected (NotDetected); Parainfluenza 3, PCR Not Detected (NotDetected); Parainfluenza 4, PCR Not Detected (NotDetected); Respiratory Syncytial Virus Not Detected (NotDetected); Rhinovirus/Enterovirus Not Detected (NotDetected)
--- NOTE | 2019-10-22 17:15 | PC.NURSE ---
Patient is s/p cardiac cath this shift, did not receive any coronary stents, medical management, remains alert and oriented x2, perrla, lung sounds diminished t/o with scattered fine crackles noted, on RA at this time but does use 2lnc as needed, abd soft and nontender, active bowel sounds in all quads, choirmaster equal, peripheral pulses 2+, no edema noted peripherally, ambulates independently to the BR without difficulty, family at bedside, denies any pain at this time, right radial cath site cdi with radial band in place, no bleeding or hematoma noted, vss, will continue to monitor for changes.
--- NOTE | 2019-10-22 19:13 | PC.NURSE ---
report given to mariana
[2019-10-23] VITALS: BP 104/61; PULSE 88; PULSE 90; RESP 17; TEMP 36.6; O2SAT 94
[2019-10-23 04:00] VITALS: BP 114/78; PULSE 88; PULSE 90; RESP 19; TEMP 37; O2SAT 94
--- NOTE | 2019-10-23 05:17 | PC.NURSE ---
shift summary, pt has rested well t/o shift, right radial cath site soft to palpation, no hematoma present, dressing in place, C/D/I, complained of tenderness at cath site, treated with tylenol, no complaints of chest pain, n/v, SOA, engine monitor has shown SR t/o shift
[2019-10-23 05:46] VITALS: BMI 33.2
[2019-10-23 06:21] LABS: Basophils % 0.5 % (0.1-2.0); Eosinophils # 0.4 K/mm3 (0.0-0.4); Eosinophils % 4.8 % (0.1-12.0); Hematocrit 33.1 % (37.0-47.0); Hemoglobin 10.3 g/dL (12.2-16.2); Lymphocytes % 36.6 % (10-50); Mean Corpuscular HGB Conc 31.1 g/dL (31.8-35.4); Mean Corpuscular Hemoglobin 26.1 pg (27.0-31.2); Mean Corpuscular Volume 83.9 fl (81-99); Mean Platelet Volume 9.7 fl (7.4-10.4); Monocytes # 0.4 K/mm3 (0.1-1.0); Neutrophils # 4.3 K/mm3 (1.8-7.8); Neutrophils % 53.1 % (37.0-80.0); Platelet Count 202 K/mm3 (142-424); Red Blood Count 3.95 M/mm3 (4.20-5.40); White Blood Count 8.2 K/mm3 (4.8-10.8)
[2019-10-23 06:33] LABS: Anion Gap 11.2 mEq/L (5-15); Blood Urea Nitrogen 10 mg/dl (7-17); Calcium 8.5 mg/dl (8.4-10.2); Carbon Dioxide 25 mmol/L (22.0-30.0); Chloride 107 mmol/L (98-107); Creatinine Clearance Estimated 151 mL/min (50-200); Estimated Glomerular Filt Rate 95 ml/min (>60); GFR (African American) 115 ML/MIN (>60); Glucose 106 mg/dl (74-100); Potassium 4.2 mmoL/L (3.5-5.1); Sodium 139 mmol/L (136-145)
[2019-10-23 07:12] VITALS: BP 104/73; PULSE 82; RESP 17; TEMP 36.7; O2SAT 94
[2019-10-23 08:00] VITALS: PULSE 77; O2SAT 95
--- NOTE | 2019-10-23 09:52 | HMH.PULMPN ---
Internal Medicine - PN: Subj *Date: 10/23/19 *Time: 09:52 Interval history: Patient denies any new complaints today stated she feels significantly better not needing oxygen supplementation Exam Vital signs and Labs for Last 24 Hours: Temp Pulse Resp BP Pulse Ox 98.0 F 82 17 104/73 L 94 L 10/23/19 07:12 10/23/19 07:12 10/23/19 07:12 10/23/19 07:12 10/23/19 07:12 Laboratory Results - last 24 hr 10/21/19 02:10: COVID-19 PCR Not detected 10/21/19 05:19: Serum HCG, Qual Negative 10/22/19 15:40: Chlamy pneumoniae PCR Not detected, Adenovirus (PCR) Not detected, B. pertussis DNA (PCR) Not detected, Coronavirus OC43 (PCR) Not detected, Coronavirus HKU1 (PCR) Not detected, Coronavirus 229E (PCR) Not detected, Coronavirus NL63 (PCR) Not detected, Human Metapneumovir PCR Not detected, Influenza A (H1) PCR Not detected, Influ A (H1N1/09) PCR Not detected, Influenza A (H3) PCR Not detected, Influenza Type A (PCR) Not detected, Influenza Type B (PCR) Not detected, M. pneumoniae (PCR) Not detected, Parainfluenza 1 (PCR) Not detected, Parainfluenza 2 (PCR) Not detected, Parainfluenza 3 (PCR) Not detected, Parainfluenza 4 (PCR) Not detected, RSV (PCR) Not detected, Entero/Rhino (PCR) Not detected 10/23/19 06:00: WBC 8.2 D, RBC 3.95 L, Hgb 10.3 L, Hct 33.1 L, MCV 83.9, MCH 26.1 L, MCHC 31.1 L, RDW 16.0, Plt Count 202, MPV 9.7, Neut % (Auto) 53.1, Lymph % (Auto) 36.6, [place] % (Auto) 5.0, Eos % (Auto) 4.8, Baso % (Auto) 0.5, Neut # (Auto) 4.3, Lymph # (Auto) 3.0, [place] # (Auto) 0.4, Eos # (Auto) 0.4, Baso # (Auto) 0.0 10/23/19 06:00: Sodium 139, Potassium 4.2, Chloride 107, Carbon Dioxide 25, Anion Gap 11.2, BUN 10 D, Creatinine 0.70, Estimated Creat Clear 151, Estimated GFR 95, Est GFR ( Amer) 115, Glucose 106 H, Calcium 8.5 I & O for Last 24 hours: Intake & Output 10/20/19 10/21/19 10/22/19 10/23/19 23:59 23:59 23:59 23:59 Intake Total 1080 / 1080 1595 / 1595 892 / 892 Output Total 825 / 825 300 / 600 300 / 300 Balance 255 / 255 1295 / 995 592 / 592 Weight 185 lb 187 lb 1 oz 187 lb 9 oz 187 lb 8.897 oz Microbiology Reports for the Last 24 Hours: Microbiology 10/21/19 01:22 Blood Blood Culture - Preliminary NO GROWTH AFTER 48 HOURS 10/21/19 01:22 Blood Blood Culture - Preliminary NO GROWTH AFTER 48 HOURS - *Routine HEENT Exam Head: Present: normocephalic, atraumatic - *Routine Neck Exam Present: supple, full ROM - *Routine Respiratory Exam Present: CTA bilaterally. Absent: accessory muscle use, respiratory distress, rhonchi, stridor, wheezes - *Routine Cardiovascular Exam Present: RRR, Normal S1, Normal S2 - *Routine Abdominal Exam Present: soft, normoactive bowel sounds. Absent: tenderness, distended, rebound, organomegaly - *Routine Extremities Exam Absent: cyanosis, clubbing, edema, calf tenderness Assessment and Plan (1) Unstable angina Current visit: Yes Status: Acute Category: Medical Code(s): I20.0 - Unstable angina (2) SOB (shortness of breath) Current visit: Yes Status: Acute Category: Medical Code(s): R06.02 - Shortness of breath (3) Sinus tachycardia Current visit: Yes Status: Acute Category: Medical Code(s): R00.0 - Tachycardia, unspecified (4) Tobacco use Current visit: Yes Status: Acute Category: Social Hx Code(s): Z72.0 - Tobacco use (5) Obesity (BMI 30.0-34.9) Current visit: Yes Status: Acute Category: Medical Code(s): E66.9 - Obesity, unspecified (6) Tobacco abuse Current visit: Yes Status: Acute Category: Medical Code(s): Z72.0 - Tobacco use - Assessment and plan all Dx Assessment and Plan for all problems:: Acute hypoxic respiratory failure: 34-year-old male with no prior respiratory complaint presented with 2-day history of worsening shortness of breath, cough with productive phlegm, labs on presentation showed neutrophilic leukocytosis. No eosinophilia
--- NOTE | 2019-10-23 10:04 | XR_ITS ---
PROCEDURE: XR CHEST 2V CLINICAL HISTORY: pneumonia Pneumonia follow-up COMPARISON: CR CXR CHEST(2 VIEWS-NOT PORTABLE) from 05/10/2015 CR CXR CHEST(2 VIEWS-NOT PORTABLE) from 10/01/2015 CR XR CHEST 2V from 10/19/[address] ANGIO CHEST from 10/21/2019 FINDINGS: The cardiomediastinal silhouette and pulmonary vascularity are within normal limits. Consolidation is once again noted in the right upper and right lower lobe and left upper and left lower lobe consistent bilateral pneumonia. This is slightly improved compared to the previous exam. No obvious effusions. Old granulomatous disease. No acute bony abnormalities. IMPRESSION: Persistent but slightly improved diffuse bilateral pneumonia Dictated by: Srinivasan Montalvo MD 10/23/2019 11:01 Srinivasan Montalvo MD in [facility] 10/23/2019 11:01
--- NOTE | 2019-10-23 10:33 | HMH.PNCARD ---
Subjective Date: 10/23/19 Time: 10:33 Principal diagnosis: Angina Interval history: 34-year-old white female in bed in no acute distress. Patient denies any chest pain, pressure or tightness. She is anxious to go home. Exam Vital signs and Labs for Last 24 Hours: Temp Pulse Resp BP Pulse Ox 98.0 F 82 17 104/73 L 95 10/23/19 07:12 10/23/19 07:12 10/23/19 07:12 10/23/19 07:12 10/23/19 08:00 Laboratory Results - last 24 hr 10/21/19 02:10: COVID-19 PCR Not detected 10/22/19 15:40: Chlamy pneumoniae PCR Not detected, Adenovirus (PCR) Not detected, B. pertussis DNA (PCR) Not detected, Coronavirus OC43 (PCR) Not detected, Coronavirus HKU1 (PCR) Not detected, Coronavirus 229E (PCR) Not detected, Coronavirus NL63 (PCR) Not detected, Human Metapneumovir PCR Not detected, Influenza A (H1) PCR Not detected, Influ A (H1N1/09) PCR Not detected, Influenza A (H3) PCR Not detected, Influenza Type A (PCR) Not detected, Influenza Type B (PCR) Not detected, M. pneumoniae (PCR) Not detected, Parainfluenza 1 (PCR) Not detected, Parainfluenza 2 (PCR) Not detected, Parainfluenza 3 (PCR) Not detected, Parainfluenza 4 (PCR) Not detected, RSV (PCR) Not detected, Entero/Rhino (PCR) Not detected 10/23/19 06:00: WBC 8.2 D, RBC 3.95 L, Hgb 10.3 L, Hct 33.1 L, MCV 83.9, MCH 26.1 L, MCHC 31.1 L, RDW 16.0, Plt Count 202, MPV 9.7, Neut % (Auto) 53.1, Lymph % (Auto) 36.6, [place] % (Auto) 5.0, Eos % (Auto) 4.8, Baso % (Auto) 0.5, Neut # (Auto) 4.3, Lymph # (Auto) 3.0, [place] # (Auto) 0.4, Eos # (Auto) 0.4, Baso # (Auto) 0.0 10/23/19 06:00: Sodium 139, Potassium 4.2, Chloride 107, Carbon Dioxide 25, Anion Gap 11.2, BUN 10 D, Creatinine 0.70, Estimated Creat Clear 151, Estimated GFR 95, Est GFR ( Amer) 115, Glucose 106 H, Calcium 8.5 I & O for Last 24 hours: Intake & Output 10/20/19 10/21/19 10/22/19 10/23/19 11:59 11:59 11:59 11:59 Intake Total 1939 1627 / 1627 Output Total 825 / 825 600 / 600 Balance -825 / -825 1939 1027 / 1027 Weight 187 lb 1 oz 187 lb 9 oz 187 lb 8.897 oz Microbiology Reports for the Last 24 Hours: Microbiology 10/21/19 01:22 Blood Blood Culture - Preliminary NO GROWTH AFTER 48 HOURS 10/21/19 01:22 Blood Blood Culture - Preliminary NO GROWTH AFTER 48 HOURS - *Routine HEENT Exam Head: Present: normocephalic Eye: Present: EOMI, PERRL ENT: Present: mucous membranes moist - *Routine Respiratory Exam Present: rhonchi - *Routine Cardiovascular Exam Present: RRR - *Routine Extremities Exam Absent: cyanosis, clubbing, edema - *Routine Neurological Exam Present: alert, oriented X3 Progress Note: A&P (1) Unstable angina Status: Acute Current Visit: Yes (2) SOB (shortness of breath) Status: Acute Current Visit: Yes (3) Sinus tachycardia Status: Acute Current Visit: Yes (4) Tobacco use Status: Acute Current Visit: Yes (5) Obesity (BMI 30.0-34.9) Status: Acute Current Visit: Yes (6) Tobacco abuse Status: Acute Current Visit: Yes (7) Coronary artery disease Status: Acute Current Visit: Yes Assessment and Plan for All Diagnoses:: 1. Coronary artery disease, moderate, medical therapy recommended. Recommend aspirin 81 mg daily, atorvastatin 40 mg daily. 2. Tachycardia, improved with metoprolol succinate 50 mg daily (discontinue propranolol). 3. Community-acquired pneumonia, per PCP and pulmonology. Okay for discharge from cardiology standpoint. Follow-up in our office in 1 to 2 weeks.
--- NOTE | 2019-10-23 10:53 | P.DS_ITS ---
General - General Admission date:: 10/21/19 Discharge date: 10/23/19 HPI HPI: This is a 34-year-old female who presented to the emergency department with complaints of chest pain, shortness of breath and tachycardia. The patient states that last night she started to have sudden onset of chest pain that she describes as a squeezing sensation. This is in the center of her chest. It does not radiate. It is associated with profound shortness of breath and nausea. This is a severe pain. She states that she did take aspirin prior to her arrival to the emergency department without much improvement in her pain. She states that the symptoms have been ongoing. She states that when her chest pressure and shortness of breath started last night she also became tachycardic again. She states that her rate had been under much better control until last night. She states that she still has some chest pressure this morning but it is somewhat better as well as her shortness of breath. She is a current smoker. She does have a nicotine patch in place. She does have a very strong history of coronary artery disease. 1 of her aunts had an LA before the age of 40. She has 2 other aunts with heart disease and her paternal grandmother had a history of coronary disease as well. She states that her father probably has heart disease but he has not been to the doctor since 2003. She denies any fever, chills, vomiting, diarrhea, PND or orthopnea. Of note, the patient is being worked up for adrenal disease by her primary care (Per Jose Donohue APRN) Cardiology has seen and recommends: 1. Patient was admitted to the hospital with complaints of chest pain. She is having symptoms consistent with unstable angina. We will plan to proceed with left cardiac catheterization at this time to evaluate her coronary artery disease. The patient has a significant family history of premature coronary artery disease. 2. The patient has been educated on the risk and benefits of proceeding with left cardiac catheterization. The patient verbalized understanding and is agreeable in proceeding with the procedure. 3. The patient will be n.p.o. in preparation for left cardiac catheterization. 4. The patient will get premeds prior to her left cardiac catheterization. 5. The patient has had some malignant hypertension as well as concern for adrenal disease. Given her history of hypertension and the concern for adrenal disease we will plan to proceed with a renal angiogram at the same time as her left cardiac catheterization per Dr. Meeks. The patient has also been educated on the risks and benefits of proceeding with a renal angiogram. The patient verbalizes understanding and is agreeable in proceeding with the procedure. 6. The CT scan of her chest did show pneumonia versus atypical edema pattern. She has been consulted by pulmonology and the patient mentioned having a biopsy tomorrow. I see no notes from pulmonology at this point. 7. Her blood pressure is well controlled today. 8. Her LDL goal is less than 100. LDL is 78. 9. Further recommendations will be made pending the patient's response to treatment and the results of her left cardiac catheterization and renal angiogram later today. Pulmonary has seen and recommends: -Please obtain respiratory viral PCR, urine strep pneumonia and urine Legionella antigens -Continue ceftriaxone and azithromycin to cover community-acquired pneumonia -Bronchoscopy with bronchoalveolar lavage of right middle lobe performed today we will follow the results of BAL differential count, Gram stain and CARLO stain along with cytopathology. -Wean oxygen requirements as tolerated. Ch
[2019-10-27 14:11] LABS: Body Fluid Culture, Sterile Not indicated. (.); Organism ID Not indicated. (.); Specimen Source Urine (.); Streptococcus pneumoniae Ag Negative (Negative)
[2019-10-28 11:19] LABS: Legionella pneumophila Abs. <0.91 OD ratio (0.00-0.90)
== END 2019-10-23 12:15 | disposition home or self-care (01) ==
LOC: ER 10-21 03:32 → 2ND 10-21 03:52
PROVIDERS: Internal Medicine; Internal Medicine Pulmonary Disease; Nurse Practitioner Family; Physician Assistant; Admitting Provider Emergency Medicine; Emergency Provider Emergency Medicine; PCP Emergency Medicine; Visit Provider Emergency Medicine
DX: J18.9 Pneumonia, unspecified organism (principal); I25.110 Atherosclerotic heart disease of native coronary artery with unstable angina pectoris; Z79.52 Long term (current) use of systemic steroids; Z79.899 Other long term (current) drug therapy
CPT/HCPCS: 31624; 36252; 36415; 71046; 71275; 80048; 80061; 80076; 83605; 83735; 83880; 84436; 84443; 84484; 84703; 85007; 85025; 85651; 86140; 86328; 86713; 87040; 87070; 87077; 87102; 87186; 87205; 87206; 87486; 87581; 87633; 87798; 87899; 88112; 88305; 89051; 93005; 93452; 96365; 96366; 96367; 96375; 99152; 99284; C1725; C1769; G0378; J0456; J1644; J2405; Q9967; U0004

== ENCOUNTER → 2020-01-14 13:09 | Outpatient (CLI) | payer MEDICAID, SELFPAY ==
--- NOTE | 2020-01-14 14:23 | PC.NURSE ---
Pulmonary Function Test Completed. Albuterol 0.083% given via hand held nebulizer, Pt tolerated well.
[2020-01-14 15:14] LABS: Basophils # 0.1 K/mm3 (0-0.2); Basophils % 0.6 % (0.1-2.0); Eosinophils # 0.3 K/mm3 (0.0-0.4); Hematocrit 43.8 % (37.0-47.0); Lymphocytes # 5.5 K/mm3 (0.7-4.5); Lymphocytes % 52.1 % (10-50); Mean Corpuscular HGB Conc 31.9 g/dL (31.8-35.4); Mean Corpuscular Hemoglobin 27.1 pg (27.0-31.2); Mean Platelet Volume 9.7 fl (7.4-10.4); Monocytes # 0.6 K/mm3 (0.1-1.0); Monocytes % 5.2 % (1.7-9.3); Neutrophils # 4.1 K/mm3 (1.8-7.8); Platelet Count 245 K/mm3 (142-424); Red Blood Count 5.15 M/mm3 (4.20-5.40); Red Cell Distribution Width 15.3 % (11.5-17.5); White Blood Count 10.5 K/mm3 (4.8-10.8)
[2020-01-14 15:18] LABS: MANUAL DIFFERENTIAL MANUAL DIFFERENTIAL (MANUAL DIFF)
[2020-01-14 15:45] LABS: Lymphocytes % 53 % (10-50); Monocytes % 4 % (2-9); Neutrophils % 43 % (42-76); Platelet Estimate Normal; RBC Morphology Normal; Total Cells Counted 100
[2020-01-14 15:46] LABS: Giant Platelets 1+; Hypochromasia 1+
[2020-01-24 18:40] LABS: D001-IgE D pteronyssinus <0.10
[2020-01-24 18:41] LABS: D002-IgE D farinae <0.10; E001-IgE Cat Dander <0.10; E005-IgE Dog Dander <0.10; G002-IgE Bermuda Grass <0.10; G006-IgE Timothy Grass <0.10; M001-IgE Penicillium chrysogen <0.10; M002-IgE Cladosporium herbarum <0.10; M003-IgE Aspergillus fumigatus <0.10
[2020-01-24 18:42] LABS: M006-IgE Alternaria alternata <0.10; T001-IgE Maple/Box Elder <0.10; T006-IgE Cedar, Mountain <0.10; T007-IgE Oak, White <0.10; T008-IgE Elm, American <0.10; T010-IgE Walnut <0.10; T011-IgE Maple Leaf Sycamore <0.10; T014-IgE Cottonwood <0.10; T015-IgE Ash, White <0.10; T022-IgE Pecan, Hickory <0.10
[2020-01-24 18:43] LABS: E072-IgE Mouse Urine <0.10; T070-IgE White Mulberry <0.10; W011-IgE Thistle, Russian <0.10; W014-IgE Pigweed, Common <0.10; W016-IgE Rough Marshelder <0.10
== END ==
PROVIDERS: PCP Emergency Medicine; Visit Provider Internal Medicine Pulmonary Disease
DX: R06.00 Dyspnea, unspecified (principal); J30.2 Other seasonal allergic rhinitis; R06.2 Wheezing
CPT/HCPCS: 36415; 82785; 85007; 85025; 86003; 94060; 94726; 94729

== ENCOUNTER → 2020-01-14 14:17 | Outpatient (CLI) | payer MEDICAID, SELFPAY | PROVIDERS: Visit Provider Internal Medicine Pulmonary Disease | DX: R06.00 Dyspnea, unspecified (principal) | CPT/HCPCS: 36415; 82785; 85007; 85025; 86003 ==

== ENCOUNTER → 2020-12-16 12:30 | Outpatient (CLI) | payer MEDICAID, SELFPAY ==
--- NOTE | 2020-12-16 12:31 | CT_ITS ---
PROCEDURE: CT CHEST WO CON CLINICAL INDICATION: dyspnea COMPARISON: CT CT ANGIO CHEST from 10/21/2019 TECHNIQUE: Axial images obtained with sagittal and coronal reformats. All CT scans at the facility use one or more dose reduction, viz: automated exposure control, ma/kV adjustment per patient size (including targeted exams where dose is matched to indication, i.e. head), or iterative reconstruction technique. FINDINGS: HEART AND MEDIASTINAL STRUCTURES: Mediastinal adenopathy is noted with scattered small nodes in the anterior mediastinum and prominent nodes in the pretracheal and precarinal region measuring up to 2.1 by 1.5 cm not significantly changed compared to the previous study. Coronary artery calcification noted. There is a small hiatal hernia. LUNGS AND PLEURAL SPACES: Faint mosaic attenuation noted in both lungs upper and lower lobes nonspecific but may be seen with small airway disease. There are few small areas of more dense ground-glass opacification. The airspace disease has improved from 10/21/2019. No effusions are evident. There is evidence of old granulomatous disease. BONY STRUCTURES: There are old bilateral rib fractures UPPER ABDOMEN: There are few scattered diverticula in the splenic flexure of the colon. Few small mesenteric and periportal lymph nodes. Small hiatal hernia. ADDITIONAL FINDINGS: No other significant abnormalities. IMPRESSION: Overall there has been improvement in the bilateral airspace disease compared to the previous study. There is however mild residual mosaic attenuation of the lungs. This is nonspecific and may be seen with small airway disease or interstitial lung disease. There are few small more dense focal areas of ground-glass attenuation. This could be residual from the previous pneumonia or even new focal areas of infiltrate or developing nodules... One cannot exclude the possibility of small nodules. Therefore, suggest six-month CT follow-up. No change in the mediastinal adenopathy Coronary artery disease Dictated by: Srinivasan Montalvo MD 12/17/2020 08:15 Srinivasan Montalvo MD in [facility] 12/17/2020 08:15
--- NOTE | 2020-12-16 13:03 | CA_ITS ---
APPROVED REPORT EXAM: Comprehensive 2D, Doppler, and color-flow Echocardiogram Cutter And Edge Trimmer: Matilde Almodovar RVT Ht: 5 ft 3 in Wt: 189lbs BSA: 1.89 BP: 118/80 mmHg Indications: CP,SOA,ABN EKG,EDEMA,HTN,SMOKER,OBESITY,HLD TDS 2D Dimensions LVOT 2.02 cm (M/F) 1.5-2.5 LA Volume 17.30 mL LA Volume Index 9.20 mL/m2 (M/F) 16-34 M-Mode Dimensions RVDd 2.93 cm (0.9-2.6) LA Diam 3.75 cm (1.9-4.0) LVDd 4.50 cm (3.5-5.7) Ao Diam 2.91 cm (2.0-3.7) LVDs 3.00 cm (3.5-5.7) IVSd 0.61 cm (0.6-1.1) PWd 0.61 cm (0.6-1.1) EF (Teich) 62.10% FS 33.30% EDV (Teich) 92.40 mL TAPSE 1.68 (<1.7) ESV (Teich) 35.00 mL LV Diastology E Decel Time 150.00 (160-240 msec) E/A Ratio 1.4 MED E' 6.80 (< 7 cm/sec) E'/MED E' Ratio 12.12 (>14) LAT E' 12.00 (<10 cm/sec) E/LAT E' Ratio 6.87 (>14) Aortic Valve AO Peak GR. 3.10 mmHg Mitral Valve MV E Max Cyrus. 82.00 (40-130 cm/s) MV A Velocity 58.00 (40-130 cm/s) E/A Ratio 1.41 MV Decel. Time 150.00 (160-240 ms) MV PHT 44.00 ms Pulmonary Valve PV Peak Velocity 69.00 (50-150 cm/s) Tricuspid Valve TR P. Velocity 264.00 cm/s RAP Estimate 10.00 mmHg RVSP 37.80 mmHg Left Ventricle Left atrium normal size, left ventricle is normal size, there is no concentric left ventricular hypertrophy, visually estimated ejection fraction 55% with no regional wall motion abnormality, diastolic parameters are within normal range. Right Ventricle Right atrium and right ventricle are mildly enlarged with normal contractility. Aortic Valve Aortic valve is grossly normal, there is no aortic stenosis or aortic insufficiency. Mitral Valve Mitral valve grossly normal, there is trace mitral regurgitation. Tricuspid Valve Tricuspid valve grossly normal, there is trace tricuspid regurgitation, tricuspid regurgitation jet velocity is inadequate for calculation of the right ventricular systolic pressure. Pulmonic Valve Pulmonic valve is poorly visualized. Great Vessels Aortic root is normal size. Inferior vena cava is normal size with normal inspiratory collapse. Pericardium No significant pericardial effusion noted. Conclusion 1. Normal left ventricular size, preserved left ventricular systolic function, visually estimated ejection fraction 55% with no regional wall motion abnormality, diastolic parameters are within normal range. 2. Mildly enlarged right ventricle with normal contractility 3. Trace mitral and tricuspid regurgitation. 4. No significant pericardial effusion noted. Electronically signed by : Sujit Topete MD 12/16/2020 16:28:09
== END ==
PROVIDERS: PCP Emergency Medicine; Visit Provider Internal Medicine Cardiovascular Disease
DX: R07.2 Precordial pain (principal); R06.02 Shortness of breath; I25.10 Atherosclerotic heart disease of native coronary artery without angina pectoris; R94.31 Abnormal electrocardiogram [ECG] [EKG]; E78.2 Mixed hyperlipidemia; E66.9 Obesity, unspecified; J44.9 Chronic obstructive pulmonary disease, unspecified; R40.0 Somnolence; Z72.0 Tobacco use; Z68.33 Body mass index [BMI] 33.0-33.9, adult
CPT/HCPCS: 36415; 71250; 82785; 86003; 93306

== ENCOUNTER → 2020-12-24 12:19 | Outpatient (CLI) | payer MEDICAID, SELFPAY ==
[2020-12-29 01:16] LABS: D001-IgE D pteronyssinus <0.10 kU/L (Class 0); D002-IgE D farinae <0.10 kU/L (Class 0); E001-IgE Cat Dander <0.10 kU/L (Class 0); E005-IgE Dog Dander <0.10 kU/L (Class 0); E072-IgE Mouse Urine <0.10 kU/L (Class 0); G002-IgE Bermuda Grass <0.10 kU/L (Class 0); G006-IgE Timothy Grass <0.10 kU/L (Class 0); I006-IgE Cockroach, German 0.16 kU/L (Class 0/I); Immunoglobulin E, Total 253 IU/mL (6-495); M001-IgE Penicillium chrysogen <0.10 kU/L (Class 0); M002-IgE Cladosporium herbarum <0.10 kU/L (Class 0); M003-IgE Aspergillus fumigatus <0.10 kU/L (Class 0); M006-IgE Alternaria alternata <0.10 kU/L (Class 0); T001-IgE Maple/Box Elder <0.10 kU/L (Class 0); T006-IgE Cedar, Mountain <0.10 kU/L (Class 0); T007-IgE Oak, White <0.10 kU/L (Class 0); T008-IgE Elm, American <0.10 kU/L (Class 0); T010-IgE Walnut <0.10 kU/L (Class 0); T011-IgE Maple Leaf Sycamore <0.10 kU/L (Class 0); T014-IgE Cottonwood <0.10 kU/L (Class 0); T015-IgE Ash, White <0.10 kU/L (Class 0); T022-IgE Pecan, Hickory <0.10 kU/L (Class 0); T070-IgE White Mulberry <0.10 kU/L (Class 0); W001-IgE Ragweed, Short <0.10 kU/L (Class 0); W011-IgE Thistle, Russian <0.10 kU/L (Class 0); W014-IgE Pigweed, Common <0.10 kU/L (Class 0); W016-IgE Rough Marshelder <0.10 kU/L (Class 0)
== END ==
PROVIDERS: Visit Provider Internal Medicine Pulmonary Disease
DX: R06.00 Dyspnea, unspecified (principal); I25.10 Atherosclerotic heart disease of native coronary artery without angina pectoris; R91.8 Other nonspecific abnormal finding of lung field
CPT/HCPCS: 36415; 82785; 86003

== ENCOUNTER → 2021-02-07 13:47 | Outpatient (CLI) | payer MEDICAID, SELFPAY ==
[2021-02-07 15:03] LABS: Basophils # 0.1 K/mm3 (0-0.2); Basophils % 0.5 % (0.1-2.0); Eosinophils # 0.3 K/mm3 (0.0-0.4); Eosinophils % 2.2 % (0.1-12.0); Hematocrit 39.3 % (37.0-47.0); Hemoglobin 12.2 g/dL (12.2-16.2); Lymphocytes # 4.3 K/mm3 (0.7-4.5); Lymphocytes % 34.4 % (10-50); Mean Corpuscular HGB Conc 31.1 g/dL (31.8-35.4); Mean Corpuscular Hemoglobin 25.9 pg (27.0-31.2); Mean Corpuscular Volume 83.3 fl (81-99); Mean Platelet Volume 9.9 fl (7.4-10.4); Monocytes # 0.5 K/mm3 (0.1-1.0); Monocytes % 4.1 % (1.7-9.3); Neutrophils # 7.3 K/mm3 (1.8-7.8); Neutrophils % 58.7 % (37.0-80.0); Platelet Count 268 K/mm3 (142-424); Red Blood Count 4.72 M/mm3 (4.20-5.40); Red Cell Distribution Width 14.8 % (11.5-17.5); White Blood Count 12.5 K/mm3 (4.8-10.8)
[2021-02-07 16:43] LABS: Anion Gap 12.2 mEq/L (5-15); Blood Urea Nitrogen 12 mg/dl (7-17); Calcium 9.2 mg/dl (8.4-10.2); Carbon Dioxide 26 mmol/L (22.0-30.0); Chloride 104 mmol/L (98-107); Estimated Glomerular Filt Rate 113 ml/min (>60); GFR (African American) 137 ML/MIN (>60); Glucose 79 mg/dl (74-100); Potassium 4.2 mmoL/L (3.5-5.1); Sodium 138 mmol/L (136-145)
== END ==
PROVIDERS: Visit Provider Physician Assistant
DX: Z01.812 Encounter for preprocedural laboratory examination (principal); Z11.52 Encounter for screening for COVID-19; R06.02 Shortness of breath; R07.89 Other chest pain; I25.10 Atherosclerotic heart disease of native coronary artery without angina pectoris; I10 Essential (primary) hypertension; E78.2 Mixed hyperlipidemia; I63.9 Cerebral infarction, unspecified; J18.9 Pneumonia, unspecified organism; R94.31 Abnormal electrocardiogram [ECG] [EKG]; E66.9 Obesity, unspecified; Z72.0 Tobacco use; Z68.35 Body mass index [BMI] 35.0-35.9, adult
CPT/HCPCS: 36415; 80048; 85025; C9803; U0003; U0005

== ENCOUNTER 2021-02-08 08:50 | Day surgery (SDC) | payer MEDICAID, SELFPAY ==
[2021-02-08] VITALS (10 sets, daily range): BP systolic 105–133; BP diastolic 70–79; PULSE 70–97; RESP 16–20; TEMP 36.6–36.8; O2SAT 90–98; BMI 34.2
--- NOTE | 2021-02-08 07:19 | IR_ITS ---
APPROVED REPORT Patient Location: Outpatient Technology Training Associate: LANA Guerrero RT (R) PROCEDURES Left heart catheterization Left ventriculogram Selective coronary INDICATION Recalcitrant angina pectoris, Known coronary disease, Moderate to severe proximal coronary artery calcification/coronary artery disease on CAT scan Informed consent was obtained prior to the procedure. COMPLICATIONS NONE Estimated Blood Loss: LESS THAN 10 ML TECHNIQUE One percent lidocaine used to anesthetize the right anterior aspect of the wrist. The right radial artery was accessed via the Seldinger technique. A 6 Albanian sheath was placed in the right radial artery. 2.5 mg of verapamil, 800 mcg of nitroglycerin, 1mg Lidocaine and 5000 U Heparin were given through the arterial sheath. The Poppa 1 catheter was also used to perform left heart catheterization, left ventriculogram and selective coronary angiogram. At the end of the procedure the sheath was removed good hemostasis was achieved using Traclet band, patient was transferred to the postop holding area in stable condition. ANGIOGRAPHIC RESULTS The left main artery Normal The left anterior descending artery Has proximal smooth 10 to 20% stenosis with remaining vessel widely patent The circumflex artery Large nondominant normal The right coronary artery Dominant with a smooth proximal to mid vessel 40% stenosis The MILLER ventriculogram reveals Normal to slightly hyperdynamic at 70% The left ventricular end-diastolic pressure Severely elevated at 35 to 40 mmHg IMPRESSION Coronary disease as described above Angina pectoris secondary to diastolic dysfunction and elevated LVEDP Hyperdynamic ventricle consistent with diastolic dysfunction PLAN 1. Treatment diastolic dysfunction with loop diuretics and negative inotropes 2. Aggressive risk factor modification Electronically signed by : Hector Meeks MD 02/08/2021 12:18:01
[2021-02-08 09:47] LABS: HCG Qualitative, Serum Negative (Negative)
== END 2021-02-08 15:07 | disposition home or self-care (01) ==
LOC: CATHLAB 08:51
PROVIDERS: PCP Emergency Medicine; Visit Provider Internal Medicine
DX: I25.118 Atherosclerotic heart disease of native coronary artery with other forms of angina pectoris (principal); F17.210 Nicotine dependence, cigarettes, uncomplicated; R07.89 Other chest pain; Z79.899 Other long term (current) drug therapy; I10 Essential (primary) hypertension; Z82.49 Family history of ischemic heart disease and other diseases of the circulatory system
CPT/HCPCS: 84703; 93458; 99152; C1725; C1769; J1644; Q9967

== ENCOUNTER → 2021-03-10 14:43 | Outpatient (CLI) | payer MEDICAID, SELFPAY ==
[2021-03-10 15:30] VITALS: PULSE 89; PULSE 94
== END ==
PROVIDERS: PCP Emergency Medicine; Visit Provider Internal Medicine Pulmonary Disease
DX: R06.09 Other forms of dyspnea (principal)
CPT/HCPCS: 94060; 94640; 94727; 94729

== ENCOUNTER → 2021-03-19 13:00 | Outpatient (CLI) | payer MEDICAID, SELFPAY | PROVIDERS: PCP Emergency Medicine; Visit Provider Internal Medicine Pulmonary Disease | DX: Z01.812 Encounter for preprocedural laboratory examination (principal); Z11.52 Encounter for screening for COVID-19 | CPT/HCPCS: C9803; U0003; U0005 ==

== ENCOUNTER 2021-03-21 08:37 | Day surgery (SDC) | payer MEDICAID, SELFPAY ==
[2021-03-16 11:02] VITALS: BMI 33.6
[2021-03-21] VITALS (10 sets, daily range): BP systolic 117–137; BP diastolic 74–94; PULSE 88–96; RESP 16–23; TEMP 36.1–36.6; O2SAT 91–96
--- NOTE | 2021-03-21 09:20 | P.PN_ITS ---
[facility] Anesthesia Checklist - Patient Identification Patient Identification: Arm Band - Structural Data Admitted From: Home Planned Operative Procedure/s: Bronchoscopy with EBUS Consent for Planned Operative Procedure(s) Verified: Yes - NPO Status Verified Time NPO: 00:00 - Additional verifications Anesthesia Reactions: No Hx Blood Transfusions: No Blood Transfusion Reaction: No - Respiratory Assessment Bilateral Throughout Breath Sounds: Inspiratory Wheezing - Airway Assessment C-Spine Mobility Assessed: Yes TMJ Mobility Assessed: Yes Dentition: Edentulous - Neurological Assessment Level of Consciousness: Awake Hx Seizures: No Numbness or tingling in extremities: No - Anesthesia Plan Anesthesia Risk discussed: Yes Anesthesia Plan: Verified ASA Class: III Anesthesia Type: General [facility] History I have reviewed the patient's past medical history: Yes Medical History: Reports:: Anxiety, Asthma, Congestive Heart Failure, Coronary Artery Disease, Gastroesophageal Reflux Disease(GERD), Hypertension, Lung Disease, Palpitations Denies:: Cancer, Diabetes Mellitus Type 1, Diabetes Mellitus Type 2, Internal Pacemaker, MRSA, Seizures *Have you ever received a pneumonia vaccine?: No *Have you received a flu vaccine this season?: No Other Medical History: Denies: Blood Transfusion Reaction Anesthesia experience/problems:: None Other Surgeries: Yes: No Previous Surgery. No: Pacemaker Amputation: No Fractures: No - *Social History Last grade of school completed: High school graduate Smoking Status: Current every day smoker Tobacco Type: cigarettes # Packs/Day (cigarettes): 1 Alcohol Intake: never Alcohol Intake Frequency:: holidays/special occasions only Substance Use Type: denies use *Occupational Status:: unemployed Housing: house Household Members: spouse *Travel in the last 8 weeks: Inside the [facility] Family Hx:: Asthma
--- NOTE | 2021-03-21 13:08 | XR_ITS ---
FINAL REPORT CLINICAL HISTORY: BRONCHOSCOPY WITH BIOPSY IN RIGHT MIDDLE LOBE IN SX FLUORO TIME-2.06 FINDINGS: FLUORO TIME PROCEDURE: Fluoroscopy in the operating room. FINDINGS: Fluoroscopy time was provided by the radiology department for the clinical service. One film was obtained. Fluoroscopy exposure time: 2:06 minutes. IMPRESSION: See above Reviewed, Interpreted and Dictated by Conner Perez MD Transcribed by Roseann Main Authenticated by Conner Perez MD on 03/21/2021 03:38:11 PM [facility]
--- NOTE | 2021-03-21 13:19 | HMH.ANESI ---
[facility] Anesthesia Record Part I Intake, IV Amount: 600 Estimated blood loss (mL): 0 Urine output (mL): 0 Blood Pressure: 137/80 SaO2: 96 Pulse Rate: 94 Respiratory Rate: 23 Temperature: 97.5 F Patient is:: Awake Stable to PACU at:: 13:15
--- NOTE | 2021-03-21 13:22 | HMH.BRONCH ---
- Procedure: Date: 03/21/21 Patient Date of :: 1985 Procedure Performed:: Bronchoscopy with airway examination, alveolar lavage, transbronchial biopsy and EBUS FNA Indications:: Lymphadenopathy, atypical pneumonia Performing Provider:: Unique Gaviria MD Referring Provider:: Dr: Gina Jo MD Sedation:: General anesthesia Procedure:: Bronchoscopy with airway examination, alveolar lavage, transbronchial biopsy and EBUS FNA: A clean EBUS bronchoscopy was advanced to the ET tube and lymph node surveillance was performed. Patient noted to have lymphadenopathy stations 4R4 LN station 7's. 6 passes were performed at each of these lymph node stations, fine-needle aspiration samples were obtained from the stations were sent for cytopathology in the green top along with flow cytometry and AFB and fungal cultures. EBUS bronchoscopy was retracted and a clean diagnostic bronchoscopy advanced through the ET tube and airways were examined up to subsegmental bronchi. No obvious airway abnormalities noted. No active bleeding or blood clots or mucous plugging noted. Bronchoalveolar lavage was performed in the right middle lobe medial segment with a total of 60 cc instilled with a return of 35 cc back. BAL sample was sent for BAL differential, AFB fungal and bacterial cultures. Transbronchial biopsies was performed the right middle lobe total of 8 biopsies were performed and were sent for cytopathological examination in formalin along with bacterial, fungal AFB stain and cultures in normal saline. Patient tolerated the procedure well. Follow with the results and follow in the clinic in 7 days. Please schedule a follow-up appointment. Findings:: Please see the procedure note Recommendations:: Please see the procedure note Complications:: None Estimated blood obtained (mL): 10
--- NOTE | 2021-03-21 13:36 | SUR.PHASEI ---
1330- respiratory at bedside giving nebulizer treatment per dr. Walker post procedure orders.
--- NOTE | 2021-03-21 13:48 | SUR.PHASEI ---
1344- detailed report called to john lopze in post op at this time.
[2021-03-22 11:49] VITALS: BP 133/93; PULSE 90; TEMP 36.3
--- NOTE | 2021-03-22 11:49 | HMH.ANESII ---
[facility] Anesthesia Record Part II Discharge Time: 13:45 Destination: Surgical Day Care (OP Surgery) PACU nurse assessment reviewed?: Yes Patient Condition:: Good Anesthesia Complications:: None Swallowing reflex intact?: Yes Cyanosis?: No Blood Pressure: 133/93 Pulse Rate: 90 Temperature: 97.3 F Mental Status: Alert & Oriented Pain level:: 0 Nausea and/or vomitting:: None Intake, IV Amount: 0
[2021-04-18 10:45] LABS: Cell Count + Differential, BAL SEE COMMENT.
== END 2021-03-21 14:16 | disposition home or self-care (01) ==
LOC: OR 08:39
PROVIDERS: PCP Emergency Medicine; Visit Provider Internal Medicine Pulmonary Disease
PROC: (CPT 31624; principal; 2021-03-21 10:00)
DX: R59.0 Localized enlarged lymph nodes; I25.10 Atherosclerotic heart disease of native coronary artery without angina pectoris; I10 Essential (primary) hypertension; J44.9 Chronic obstructive pulmonary disease, unspecified; F17.210 Nicotine dependence, cigarettes, uncomplicated; Z79.899 Other long term (current) drug therapy; R06.09 Other forms of dyspnea
CPT/HCPCS: 31624; 31653; 31628; 71045; 76000; 87070; 87077; 87102; 87116; 87186; 87205; 87206; 89051; 94640

== ENCOUNTER → 2021-04-19 13:36 | Outpatient (CLI) | payer MEDICAID, SELFPAY ==
[2021-04-19 15:03] LABS: Alanine Aminotransferase 22 U/L (12-78); Alkaline Phosphatase 112 U/L (38-126); Aspartate Amino Transferase 32 U/L (14-36); Bilirubin,Direct 0.2 mg/dl (0.0-0.4); Bilirubin,Total 0.2 mg/dl (0.2-1.3)
[2021-04-19 15:04] LABS: Albumin Level 4.2 g/dl (3.5-5.0); Chol/HDL Ratio 4.1 (1-3.5); Cholesterol 196 mg/dl (140-200); HDL Cholesterol 48 mg/dl (40-60); Total Protein,Serum 7.4 g/dl (6.3-8.2); Triglycerides 171 mg/dl (30-150); VLDL Cholesterol 34 mg/dL (0-40)
[2021-04-19 15:15] LABS: Direct LDL Cholesterol 118.46 mg/dL (100-129)
== END ==
PROVIDERS: PCP Emergency Medicine; Visit Provider Physician Assistant
DX: R06.00 Dyspnea, unspecified (principal); R07.9 Chest pain, unspecified; I25.10 Atherosclerotic heart disease of native coronary artery without angina pectoris; E78.5 Hyperlipidemia, unspecified; R94.31 Abnormal electrocardiogram [ECG] [EKG]; J18.9 Pneumonia, unspecified organism; R06.83 Snoring; R40.0 Somnolence; E66.9 Obesity, unspecified; Z68.35 Body mass index [BMI] 35.0-35.9, adult; Z72.0 Tobacco use
CPT/HCPCS: 36415; 80061; 80076

== ENCOUNTER → 2021-04-28 15:27 | Outpatient (CLI) | payer MEDICAID, SELFPAY | PROVIDERS: PCP Emergency Medicine; Visit Provider Physician Assistant | DX: G47.30 Sleep apnea, unspecified (principal); R09.02 Hypoxemia; R40.0 Somnolence; R06.83 Snoring | CPT/HCPCS: 95806 ==

== ENCOUNTER 2021-12-01 10:10 | Emergency (ER) | payer BC, SELFPAY ==
[2021-12-01 10:17] VITALS: BP 139/99; PULSE 74; RESP 16; TEMP 36.7; O2SAT 97; BMI 33.6
--- NOTE | 2021-12-01 10:20 | XR_ITS ---
FINAL REPORT CLINICAL HISTORY: PAIN AND SWELLING FINDINGS: RIGHT ANKLE: Three views of the right ankle were obtained. There is no acute fracture or dislocation. The joint spaces and mortise are intact. There is no soft tissue abnormality. IMPRESSION: No acute process. Reviewed, Interpreted and Dictated by Crispin Rankin III, MD Transcribed by Mathew Florentino Authenticated and . [facility]
[2021-12-01 10:25] VITALS: BP 139/99; PULSE 74; RESP 16; TEMP 36.7; O2SAT 97; BMI 33.6
--- NOTE | 2021-12-01 10:45 | EXP.UTC ---
Discharge Plan Disposition Patient Disposition: Home, Self-Care Condition: Good Prescriptions Prescriptions: New amoxicillin-pot clavulanate 875-125 mg Tablet 1 tab PO Q12H Qty: 20 0RF mupirocin 2 % ointment 1 applic topical TID 10 Days Qty: 22 0RF Rx Instructions: apply to skin around toenail No Action gabapentin 300 mg capsule 300 mg PO QID cetirizine [Zyrtec] 10 mg tablet 10 mg PO DAILY PRN (Reason: allergy symptoms) Qty: 30 2RF ipratropium-albuterol 0.5 mg-3 mg(2.5 mg base)/3 mL solution for nebulization 3 ml INHALATION QID PRN (Reason: shortness of breath or wheezing) 90 Days Qty: 270 3RF albuterol sulfate 90 mcg/actuation HFA aerosol inhaler 1 inh INHALATION Q6H PRN (Reason: shortness of breath or wheezing) 90 Days Qty: 8.5 3RF rosuvastatin 10 mg tablet 10 mg PO DAILY Qty: 30 5RF spironolactone 25 mg tablet 50 mg PO BID Qty: 180 3RF furosemide 40 mg tablet 20 mg PO BID Qty: 180 3RF diltiazem HCl 120 mg capsule,extended release 24hr 120 mg PO DAILY Qty: 90 3RF budesonide-formoterol 160-4.5 mcg/actuation HFA aerosol inhaler 2 puff IH BID 90 Days Qty: 10.2 1RF metoprolol succinate 100 MG tablet extended release 24 hr 100 mg PO DAILY montelukast 10 MG tablet 10 mg PO DAILY azelastine 137 MCG/0.137 ML bottle 1 spray INTRANASAL BID Rx Instructions: administer into each nostril fluticasone propionate 16 GM spray,suspension 1 spray INTRANASAL DAILY Rx Instructions: administer into each nostril nicotine 1 EACH patch, TD daily, sequential 1 patch TRANSDERMA Q24H Referrals Follow up/Referrals: Stevenson Colon [Primary Care Provider] - See instructions Activity Restrictions/Add. Instructions Additional Instructions/Restrictions: Eat low sodium diet and monitor sodium intake to help with swelling and edema Sit with legs elevated above the heart to help with swelling Follow up with your Family Doctor if swelling continues or worsens Return if needed Suportive Compression socks and well fited shoes Take medication as prescribed for infected ingrown toenail Follow up with your Family Doctor or Podiatry for ingrown toenail Wearing ankle brace like you can purchase at [employer] may help with pain and provide ankle support Clinical Impressions Clinical Impression: Ingrowing toenail, Ankle pain Stand Alone Forms Stand Alone Forms: Work/School Release Instructions Patient Instructions: DI for Dependent Edema, DI for Ankle Pain, DI for Infected Ingrown Toenail Discharge ED Provider: Mariposa James [facility] General Stated complaint: No accident, RT ankle pain, inflammation Mode of Arrival: Ambulatory Source of Information: Patient Limitations: No Limitations Time Seen by Provider: 12/01/21 10:45 Description of Symptoms (Recalled from Triage Doc. by RN): Pt c/o R ankle pain and swelling for approx 1 week. Pt states no known injury but reports increase in activity r/t more walking since starting a new job. History of Present Illness Provider Complaint: Patient states that she has been having pain and swelling in her right ankle after she took a new job where she is walking more and doesnt remember doing anything to hurt it States that sometimes she has swelling in her legs and ankles States that also she has area on her left great toe that looks infected that she wants to have looked at Related Data Home Medications Medication Instructions Recorded Confirmed gabapentin 300 mg capsule 300 mg PO QID Pain 12/09/20 04/19/21 azelastine 137 mcg (0.1 %) nasal 1 spray intranasal BID allergies 02/08/21 04/19/21 spray aerosol fluticasone propionate 50 1 spray intranasal DAILY allergies 02/08/21 04/19/21 mcg/actuation nasal spray,suspension metoprolol succinate 100 mg 100 mg PO DAILY htn 02/08/21 04/19/21 tablet,extended release 24 hr montelukast 10 mg tablet 10 mg PO DAILY allergies 02/08/2104/19
[2021-12-01 11:36] VITALS: BP 139/99; PULSE 74; RESP 16; TEMP 36.7; O2SAT 97
== END 2021-12-01 11:38 | disposition home or self-care (01) ==
PROVIDERS: Emergency Provider Nurse Practitioner; PCP Family Medicine
DX: L60.0 Ingrowing nail (principal); M25.571 Pain in right ankle and joints of right foot
CPT/HCPCS: 73610; 99212; G0463

== ENCOUNTER → 2022-03-02 13:55 | Outpatient (CLI) | payer BC, SELFPAY ==
--- NOTE | 2022-03-02 14:09 | XR_ITS ---
FINAL REPORT CLINICAL HISTORY: dyspnea/edema, shortness of breath COMPARISON: 10-23-19 FINDINGS: Two views of the chest show lungs to be clear. Pulmonary vascularity is normal. Heart and mediastinum are unremarkable. No pleural effusion is present. IMPRESSION: No active disease. Authenticated and ERN
[2022-03-02 15:15] LABS: Basophils # 0.1 K/mm3 (0-0.2); Basophils % 1.2 % (0.1-2.0); Eosinophils # 0.2 K/mm3 (0.0-0.4); Eosinophils % 2.8 % (0.1-12.0); Hemoglobin 12.7 g/dL (12.2-16.2); Lymphocytes # 3.6 K/mm3 (0.7-4.5); Lymphocytes % 43.1 % (10-50); Mean Corpuscular HGB Conc 32.5 g/dL (31.8-35.4); Mean Corpuscular Hemoglobin 28.5 pg (27.0-31.2); Mean Corpuscular Volume 87.8 fl (81-99); Mean Platelet Volume 9.3 fl (7.4-10.4); Monocytes # 0.5 K/mm3 (0.1-1.0); Monocytes % 6.1 % (1.7-9.3); Neutrophils # 3.9 K/mm3 (1.8-7.8); Neutrophils % 46.8 % (37.0-80.0); Platelet Count 259 K/mm3 (142-424); Red Blood Count 4.45 M/mm3 (4.20-5.40); Red Cell Distribution Width 14.8 % (11.5-17.5); White Blood Count 8.4 K/mm3 (4.8-10.8)
[2022-03-02 17:19] LABS: Chloride 105 mmol/L (98-107); Sodium 138 mmol/L (136-145)
[2022-03-02 17:21] LABS: Alanine Aminotransferase 28 U/L (12-78); Aspartate Amino Transferase 27 U/L (14-36); Blood Urea Nitrogen 12 mg/dl (7-17); Estimated Glomerular Filt Rate 81 ml/min (>60); GFR (African American) 98 ML/MIN (>60)
[2022-03-02 17:22] LABS: Albumin Level 4.1 g/dl (3.5-5.0); Alkaline Phosphatase 107 U/L (38-126); Bilirubin,Direct 0.2 mg/dl (0.0-0.4); Bilirubin,Total 0.2 mg/dl (0.2-1.3); Calcium 8.6 mg/dl (8.4-10.2); Carbon Dioxide 24 mmol/L (22.0-30.0); Cholesterol 179 mg/dl (140-200); Glucose 94 mg/dl (74-100); Magnesium 2.2 mg/dl (1.6-2.3); Total Protein,Serum 7.3 g/dl (6.3-8.2); Triglycerides 133 mg/dl (30-150); VLDL Cholesterol 27 mg/dL (0-40)
[2022-03-02 17:23] LABS: Chol/HDL Ratio 3.4 (1-3.5); HDL Cholesterol 53 mg/dl (40-60)
[2022-03-02 17:34] LABS: Direct LDL Cholesterol 86.94 mg/dL (100-129)
[2022-03-02 17:42] LABS: Free T4 (Free Thyroxine) 1.02 ng/dl (0.78-2.19)
[2022-03-02 17:54] LABS: Thyroid Stimulating Hormone 3.46 uIU/mL (0.465-4.68)
== END ==
LOC: LAB 13:57
PROVIDERS: PCP Family Medicine; Visit Provider Physician Assistant
DX: R06.01 Orthopnea (principal); R06.02 Shortness of breath; R60.0 Localized edema; R63.5 Abnormal weight gain; R94.31 Abnormal electrocardiogram [ECG] [EKG]
CPT/HCPCS: 36415; 71046; 80048; 80061; 80076; 83735; 84439; 84443; 85025

== ENCOUNTER → 2022-03-09 14:39 | Outpatient (CLI) | payer BC, SELFPAY ==
--- NOTE | 2022-03-09 14:46 | CA_ITS ---
APPROVED REPORT EXAM: Comprehensive 2D, Doppler, and color-flow Echocardiogram Heddler Tier: Lore Higginbotham CRT Ht: 5 ft 2 in Wt: 215lbs BSA: 1.97 BP: 116/76 mmHg Indications: Chest Pain, Shortness of Breath, Obesity, Peripheral Edema 2D Dimensions LVOT 1.77 cm (M/F) 1.5-2.5 LA Volume 32.70 mL LA Volume Index 16.20 mL/m2 (M/F) 16-34 M-Mode Dimensions RVDd 2.33 cm (0.9-2.6) LA Diam 2.94 cm (1.9-4.0) LVDd 4.69 cm (3.5-5.7) Ao Diam 3.96 cm (2.0-3.7) LVDs 3.11 cm (3.5-5.7) IVSd 1.29 cm (0.6-1.1) PWd 0.75 cm (0.6-1.1) EF (Teich) 62.50% FS 33.70% EDV (Teich) 101.90 mL TAPSE 2.09 (<1.7) ESV (Teich) 38.20 mL LV Diastology E Decel Time 153.00 (160-240 msec) E/A Ratio 1.22 MED E' 8.40 (< 7 cm/sec) MED A' 6.80 cm/s E'/MED E' Ratio 9.56 (>14) LAT E' 12.20 (<10 cm/sec) LAT A' 9.00 cm/s E/LAT E' Ratio 6.58 (>14) Aortic Valve AO Peak GR. 6.40 mmHg Mitral Valve MV E Max Cyrus. 80.00 (40-130 cm/s) MV A Velocity 66.00 (40-130 cm/s) E/A Ratio 1.22 MV Decel. Time 153.00 (160-240 ms) MV PHT 45.00 ms Pulmonary Valve PV Peak Velocity 122.00 (50-150 cm/s) Tricuspid Valve TR P. Velocity 265.00 cm/s RAP Estimate 10.00 mmHg RVSP 38.10 mmHg Left Ventricle Left atrium is normal size, left ventricle is normal size, estimated ejection fraction 55% with no regional wall motion abnormality, diastolic parameters are within normal range. Right Ventricle Right atrium and right ventricle are normal size and contractility. Aortic Valve Aortic valve is grossly normal there is no aortic stenosis aortic insufficiency. Mitral Valve Mitral valve grossly normal, there is trace mitral regurgitation. Tricuspid Valve Tricuspid valve grossly normal, there is trace tricuspid regurgitation, tricuspid regurgitation jet velocity is inadequate for calculation of the right ventricular systolic pressure. Pulmonic Valve Pulmonic valve is poorly visualized. Great Vessels Aortic root is normal size. Inferior vena cava is normal size with normal inspiratory collapse. Pericardium No significant pericardial effusion noted. Conclusion 1. Normal left ventricular size preserved left ventricular systolic function, estimated ejection fraction 55% with no regional wall motion abnormality, diastolic parameters are within normal range. 2. Trace mitral and tricuspid regurgitation. 3. No significant pericardial effusion. 4. Inferior vena cava is normal size with normal inspiratory collapse. Electronically signed by : Sujit Topete MD 03/10/2022 13:24:32
== END ==
LOC: RT 14:44
PROVIDERS: PCP Family Medicine; Visit Provider Physician Assistant
DX: R06.01 Orthopnea (principal); R06.02 Shortness of breath; R60.0 Localized edema; R63.5 Abnormal weight gain; R94.31 Abnormal electrocardiogram [ECG] [EKG]
CPT/HCPCS: 93306

== ENCOUNTER → 2022-09-21 11:24 | Outpatient (CLI) | payer BC, SELFPAY ==
[2022-09-21 12:01] LABS: Basophils # 0.1 K/mm3 (0-0.2); Basophils % 0.9 % (0.1-2.0); Eosinophils # 0.2 K/mm3 (0.0-0.4); Hematocrit 44.1 % (37.0-47.0); Hemoglobin 14.2 g/dL (12.2-16.2); Lymphocytes # 3.1 K/mm3 (0.7-4.5); Lymphocytes % 38.7 % (10-50); Mean Corpuscular HGB Conc 32.2 g/dL (31.8-35.4); Mean Corpuscular Hemoglobin 27.9 pg (27.0-31.2); Mean Corpuscular Volume 86.6 fl (81-99); Mean Platelet Volume 10.1 fl (7.4-10.4); Monocytes # 0.4 K/mm3 (0.1-1.0); Monocytes % 5.2 % (1.7-9.3); Neutrophils # 4.3 K/mm3 (1.8-7.8); Neutrophils % 53.3 % (37.0-80.0); Platelet Count 224 K/mm3 (142-424); Red Blood Count 5.09 M/mm3 (4.20-5.40); Red Cell Distribution Width 13.8 % (11.5-17.5)
[2022-09-21 12:28] LABS: Chloride 103 mmol/L (98-107); Sodium 141 mmol/L (136-145)
[2022-09-21 12:29] LABS: Potassium 4.4 mmoL/L (3.5-5.1)
[2022-09-21 12:31] LABS: Alanine Aminotransferase 32 U/L (12-78); Albumin Level 4.1 g/dl (3.5-5.0); Alkaline Phosphatase 115 U/L (38-126); Anion Gap 11.4 mEq/L (5-15); Aspartate Amino Transferase 32 U/L (14-36); Bilirubin,Direct 0.3 mg/dl (0.0-0.4); Bilirubin,Total 0.3 mg/dl (0.2-1.3); Blood Urea Nitrogen 15 mg/dl (7-17); Calcium 9.7 mg/dl (8.4-10.2); Carbon Dioxide 31 mmol/L (22.0-30.0); Cholesterol 184 mg/dl (140-200); Estimated Glomerular Filt Rate 94 ml/min (>60); GFR (African American) 113 ML/MIN (>60); Glucose 120 mg/dl (74-100); Total Protein,Serum 7.2 g/dl (6.3-8.2); Triglycerides 207 mg/dl (30-150); VLDL Cholesterol 41 mg/dL (0-40)
[2022-09-21 12:32] LABS: Chol/HDL Ratio 3.5 (1-3.5); HDL Cholesterol 53 mg/dl (40-60)
[2022-09-21 12:42] LABS: Direct LDL Cholesterol 107.38 mg/dL (100-129)
[2022-09-21 12:48] LABS: Free T4 (Free Thyroxine) 0.86 ng/dl (0.78-2.19)
[2022-09-21 13:02] LABS: Thyroid Stimulating Hormone 3.12 uIU/mL (0.465-4.68)
[2022-09-21 13:04] LABS: Hemoglobin A1C 5.8 % (4.0-6.0)
== END ==
PROVIDERS: PCP Family Medicine; Visit Provider Nurse Practitioner
DX: R06.00 Dyspnea, unspecified (principal); R06.01 Orthopnea; R06.09 Other forms of dyspnea; I25.10 Atherosclerotic heart disease of native coronary artery without angina pectoris; I11.9 Hypertensive heart disease without heart failure; E11.9 Type 2 diabetes mellitus without complications; E78.5 Hyperlipidemia, unspecified; R60.0 Localized edema; R63.5 Abnormal weight gain; R94.31 Abnormal electrocardiogram [ECG] [EKG]; I63.9 Cerebral infarction, unspecified; E66.9 Obesity, unspecified; Z68.39 Body mass index [BMI] 39.0-39.9, adult; Z71.6 Tobacco abuse counseling; Z72.0 Tobacco use; Z79.899 Other long term (current) drug therapy
CPT/HCPCS: 36415; 80048; 80061; 80076; 83036; 84439; 84443; 85025